=== PATIENT | female | born 1965 | race Caucasian/White ===

== ENCOUNTER → 2016-11-24 | Outpatient (CLI) | payer OTHER ==
[~2016-11-24] MED LIST: ALBU17IN INH; ALBUTEROL INH; CENTTAB47 PO; CITRACAL; IRON SULFATE PO; LISI10TA4 PO; LISIPOW PO; METFORMIN PO; NEXIUM PO; OMEP40CA2 PO; ONDA1TAB15 PO; TOPA50TA7 PO; VITA500T53 PO; VYTORIN PO
[2016-11-24 10:49] LABS: BASO % 0.5 % (0.0-1.0); EOS # 0.1 K/mm3 (0.0-0.50); EOS % 1.2 % (0.0-3.0); LARGE UNSTAINED CELL # 0.1 K/mm3 (0.0-0.4); LARGE UNSTAINED CELL % 1.1 % (0.0-4.0); LYMPH # 1.3 K/mm3 (1.5-4.5); LYMPH % 20.7 % (24.0-44.0); MEAN CORPUSCULAR HEMOGLOBIN 30.2 pg (27.0-33.0); MEAN CORPUSCULAR HGB CONC 33.6 g/dl (32.0-36.5); MEAN CORPUSCULAR VOLUME 89.9 fl (80.0-96.0); MONO # 0.3 K/mm3 (0.0-0.8); NEUTROPHILS # 4.2 K/mm3 (1.8-7.7); NEUTROPHILS % 71.5 % (36.0-66.0); PLATELET COUNT, AUTOMATED 298 k/mm3 (150-450); RED CELL DISTRIBUTION WIDTH 13.2 % (11.5-14.5); WHITE BLOOD COUNT 5.8 K/mm3 (4.0-10.0)
[2016-11-24 11:18] LABS: ALBUMIN 3.8 GM/DL (3.2-5.2); ALBUMIN/GLOBULIN RATIO 1.36 (1.00-1.93); ALKALINE PHOSPHATASE 80 U/L (45-117); ALT/SGPT 27 U/L (12-78); ANION GAP 6 MEQ/L (8-16); AST/SGOT 12 U/L (15-37); BILIRUBIN,TOTAL 0.5 MG/DL (0.2-1.0); BLOOD UREA NITROGEN 17 MG/DL (7-18); CALCIUM LEVEL 8.7 MG/DL (8.5-10.1); CARBON DIOXIDE LEVEL 26 MEQ/L (21-32); CHLORIDE LEVEL 111 MEQ/L (98-107); CREATININE FOR GFR 0.65 MG/DL (0.55-1.02); FREE T4 1.03 NG/DL (0.76-1.46); GLOMERULAR FILTRATION RATE > 60.0 (>51); GLUCOSE, FASTING 89 MG/DL (70-105); SODIUM LEVEL 143 MEQ/L (136-145); TOTAL PROTEIN 6.6 GM/DL (6.4-8.2)
== END ==
LOC: M LAB 09:52
PROVIDERS: ATTEND Physician Assistant Medical
DX: R19.7 Diarrhea, unspecified (principal)

== ENCOUNTER → 2016-11-25 | Outpatient (REF) | payer OTHER | LOC: M LAB REF 14:13 | PROVIDERS: ATTEND Physician Assistant Medical | DX: R19.7 Diarrhea, unspecified (principal) ==

== ENCOUNTER → 2016-11-29 | Outpatient (CLI) | payer OTHER ==
--- NOTE | 2016-11-30 07:01 | REP ---
KUB: Single view. History: Sitz marker, issues with diarrhea. The patient relates that sitz markers were administered in this department on November 24, 2016 at 10:30 a.m. Findings: KUB study shows no evidence of retention of any of the ingested sitz markers. There are clips in right upper quadrant and sutures in the left upper quadrant. There are phleboliths in the pelvis bilaterally. The bowel gas pattern is normal. Impression: Negative KUB. Postoperative changes in the upper abdomen. The sitz markers all appear to have passed through the gastrointestinal tract. Signed by Warren Santacruz MD 11/30/2016 08:42 A
== END ==
LOC: M RAD 08:00
PROVIDERS: ATTEND Physician Assistant Medical
DX: R19.7 Diarrhea, unspecified (principal)

== ENCOUNTER → 2017-01-12 | Outpatient (CLI) | payer OTHER ==
[~2017-01-12] MED LIST changes: +E-Z-PAQUE 96% w/w SUSP 176GM BTL As Ordered ONE
--- NOTE | 2017-01-12 17:04 | REP ---
SMALL BOWEL FOLLOW-THROUGH: The procedure was performed under the direct supervision of Dr. Albert. The images were reviewed with Dr. Albert. The aircraft maintenance instructor film shows no organomegaly or pathological masses. The intestinal gas pattern is nonspecific. There are bowel sutures noted in the epigastric region consistent with the patient's history of prior gastric bypass. There are surgical clips noted in the right upper quadrant. Liquid barium and administered and the barium column was followed through the small bowel to the level of the terminal ileum. Small bowel transit time was rapid as contrast is seen in ascending colon on the 0 minute film. During fluoroscopy gentle palpation shows all loops are freely movable and pliable. There are no fixed or angulated loops. The small bowel mucosal pattern is normal in course and caliber. There is no transition to suggest a partial small bowel obstruction. Spot filming of terminal ileum shows it to be unremarkable. IMPRESSION: Small bowel transit time is rapid as contrast is seen in the ascending colon on the 0 minute film.. Otherwise unremarkable small bowel follow through examination. 3 minutes and 26 seconds of fluoroscopy time was utilized for this procedure. Reviewed by AVRIL Washburn 01/13/2017 05:38 PEdited and Signed by Ashutosh Albert MD 01/13/2017 07:41 P
== END ==
LOC: M RAD 09:11
PROVIDERS: ATTEND Internal Medicine Gastroenterology
DX: R19.7 Diarrhea, unspecified (principal)

== ENCOUNTER → 2017-01-15 | Outpatient (CLI) | payer OTHER ==
[~2017-01-15] MED LIST changes: -E-Z-PAQUE 96% w/w SUSP 176GM BTL As Ordered ONE; +GASTROGRAFIN SOLUTION 30ML (Q9963) As Ordered ONE; +ISOVUE-370 76% 100ML VIAL (Q9967) As Ordered ONE
--- NOTE | 2017-01-16 06:13 | REP ---
Clinical: Irritable bowel syndrome. Diarrhea. Technique: Axial contrast enhanced images from the lung bases to the pubic symphysis using oral and 100 ml Isovue 370 intravenous contrast material with precontrast images of the abdomen as well as coronal and sagittal re-formations. Findings: Lung bases are clear. Visualized heart and pericardium normal. Liver, spleen, pancreas, bilateral adrenal glands and kidneys are essentially normal; 7 mm nonobstructing right renal calculus noted (image 27). There is evidence for prior gastric bypass, cholecystectomy, and hysterectomy. There is no evidence for bowel obstruction. A mild colitis cannot be excluded and should be correlated with physical examination. Pelvis demonstrates normal bladder. 3.5 cm left and 2 cm right hypodensities likely represents ovarian cysts. No ascites. No adenopathy. No free air. Vasculature is normal. Surrounding musculoskeletal structures without focal osseous abnormality. Impression: 1. 7 mm nonobstructing right renal calculus. 2. Possible mild pancolitis. 3. 3.5 cm left and 2 cm right adnexal hypodensities likely representing ovarian cysts may warrant pelvic ultrasound follow-up. Signed by Jorge Coley MD 01/16/2017 06:05 A
== END ==
LOC: M RAD 13:26
PROVIDERS: ATTEND Internal Medicine Gastroenterology
DX: R19.7 Diarrhea, unspecified (principal)

== ENCOUNTER → 2017-04-23 | Outpatient (CLI) | payer OTHER ==
[~2017-04-23] MED LIST changes: -GASTROGRAFIN SOLUTION 30ML (Q9963) As Ordered ONE; -ISOVUE-370 76% 100ML VIAL (Q9967) As Ordered ONE; -ONDA1TAB15 PO; +ONDA4TAB5 PO; -TOPA50TA7 PO; +TOPA50TA8 PO
[2017-04-23 16:32] LABS: AMYLASE 44 U/L (25-115)
== END ==
LOC: M LAB 15:23
PROVIDERS: ATTEND Internal Medicine Gastroenterology
DX: R10.13 Epigastric pain (principal); R19.7 Diarrhea, unspecified

== ENCOUNTER → 2017-04-23 | Outpatient (CLI) | payer OTHER ==
[2017-04-23 17:28] LABS: ALBUMIN 3.9 GM/DL (3.2-5.2); ALBUMIN/GLOBULIN RATIO 1.34 (1.00-1.93); ALKALINE PHOSPHATASE 81 U/L (45-117); ALT/SGPT 32 U/L (12-78); AMYLASE 44 U/L (25-115); ANION GAP 11 MEQ/L (8-16); AST/SGOT 16 U/L (15-37); BILIRUBIN,TOTAL 0.6 MG/DL (0.2-1.0); BLOOD UREA NITROGEN 14 MG/DL (7-18); CARBON DIOXIDE LEVEL 22 MEQ/L (21-32); CHLORIDE LEVEL 111 MEQ/L (98-107); CREATININE FOR GFR 0.59 MG/DL (0.55-1.02); GLOMERULAR FILTRATION RATE > 60.0 (>51); GLUCOSE, FASTING 78 MG/DL (70-105); SODIUM LEVEL 144 MEQ/L (136-145); TOTAL PROTEIN 6.8 GM/DL (6.4-8.2)
[2017-04-23 17:40] LABS: BASO % 0.4 % (0.0-1.0); EOS # 0.1 K/mm3 (0.0-0.50); EOS % 1.3 % (0.0-3.0); LARGE UNSTAINED CELL # 0.1 K/mm3 (0.0-0.4); LARGE UNSTAINED CELL % 1.3 % (0.0-4.0); LYMPH # 1.4 K/mm3 (1.5-4.5); LYMPH % 24.7 % (24.0-44.0); MEAN CORPUSCULAR HEMOGLOBIN 29.9 pg (27.0-33.0); MEAN CORPUSCULAR HGB CONC 33.9 g/dl (32.0-36.5); MEAN CORPUSCULAR VOLUME 88.4 fl (80.0-96.0); MONO # 0.2 K/mm3 (0.0-0.8); MONO % 3.8 % (0.0-5.0); NEUTROPHILS # 3.8 K/mm3 (1.8-7.7); NEUTROPHILS % 68.4 % (36.0-66.0); PLATELET COUNT, AUTOMATED 314 k/mm3 (150-450); RED CELL DISTRIBUTION WIDTH 13.2 % (11.5-14.5); WHITE BLOOD COUNT 5.5 K/mm3 (4.0-10.0)
== END ==
LOC: M WUC 14:04
PROVIDERS: ATTEND Physician Assistant
DX: R10.816 Epigastric abdominal tenderness (principal)

== ENCOUNTER → 2017-04-24 | Outpatient (CLI) | payer OTHER ==
[~2017-04-24] MED LIST changes: +GASTROGRAFIN SOLUTION 30ML (Q9963) As Ordered ONE; +ISOVUE-370 76% 100ML VIAL (Q9967) As Ordered ONE
--- NOTE | 2017-04-24 13:40 | REP ---
CT ABDOMEN WITH ORAL AND IV CONTRAST: CT abdomen performed following the administration of oral contrast as well as the intravenous administration of 100 mL of Isovue 370. Sagittal and coronal reconstruction images are performed. Comparison made with prior study of 04/04/2017. In the visualized lung bases, there is an old 3 mm nodular opacity in the right lower lobe which is benign. Patient has had a prior cholecystectomy. Liver appears grossly unremarkable. There is not significant biliary dilatation. Spleen, adrenals and pancreas are unremarkable in appearance. Left kidney appears unremarkable. Right kidney demonstrates a 5 mm calculus in the upper pole. There is no hydronephrosis bilaterally. No adenopathy or free air or free fluid is seen in the abdomen. IMPRESSION: No acute abnormalities. There is again a 5 mm right intrarenal calculus. No hydronephrosis. No free air or free fluid. Signed by Ashutosh Albert MD 04/24/2017 05:10 P
== END ==
LOC: M RAD 11:08
PROVIDERS: ATTEND Physician Assistant
DX: R10.9 Unspecified abdominal pain (principal)

== ENCOUNTER → 2017-04-24 | Outpatient (REF) | payer OTHER ==
[~2017-04-24] MED LIST changes: -GASTROGRAFIN SOLUTION 30ML (Q9963) As Ordered ONE; -ISOVUE-370 76% 100ML VIAL (Q9967) As Ordered ONE
== END ==
LOC: M LAB REF 11:53
PROVIDERS: ATTEND Internal Medicine Gastroenterology
DX: R10.13 Epigastric pain (principal); R19.7 Diarrhea, unspecified

== ENCOUNTER → 2017-05-05 | Outpatient (REF) | payer OTHER ==
[2017-05-05 18:14] LABS: VITAMIN B12 LEVEL 761 PG/ML (247-911)
[2017-05-05 18:15] LABS: FOLATE > 24.0 NG/ML (>5.4)
== END ==
LOC: M LABNEURO 16:12
PROVIDERS: ATTEND Psychiatry & Neurology Neurology
DX: E55.9 Vitamin D deficiency, unspecified (principal)

== ENCOUNTER → 2017-05-15 | Outpatient (CLI) | payer OTHER ==
--- NOTE | 2017-05-15 19:22 | REP ---
MRI CERVICAL SPINE WITHOUT CONTRAST: HISTORY: Neck pain. A disc bulge is present at the C5-6 level. There is minimal effacement of the thecal sac without spinal cord compression. The C5 neural foramina are patent. There is no other disc bulge or herniation. The remaining neural foramina are patent. The spinal cord is normal in signal intensity. Normal signal intensity is present in the cervical vertebral bodies. IMPRESSION: Disc bulge at the C5-6 level without spinal cord compression. Signed by Jung Carias MD 05/19/2017 08:15 A
== END ==
LOC: M PLARAD 13:24
PROVIDERS: ATTEND Psychiatry & Neurology Neurology
DX: M54.2 Cervicalgia (principal)

== ENCOUNTER 2017-10-22 11:28 | Day surgery (SDC) | payer OTHER ==
[2017-10-22] MEDS ORDERED: PROPOFOL 200 MG/20 ML VIAL As Ordered ×2 (13:55)
[2017-10-22] MEDS ORDERED: LIDOCAINE 2% INJ 100 MG/5 ML SDV (FOR ANES.) As Ordered (13:55)
== END 2017-10-22 14:52 | disposition home or self-care (01) ==
LOC: M OPP 11:28
DX: R19.7 Diarrhea, unspecified (principal); R10.9 Unspecified abdominal pain; Z86.010 Personal history of colon polyps; K64.8 Other hemorrhoids; I10 Essential (primary) hypertension; R01.1 Cardiac murmur, unspecified; K21.9 Gastro-esophageal reflux disease without esophagitis; R12 Heartburn; K86.81 Exocrine pancreatic insufficiency; D64.9 Anemia, unspecified; G43.909 Migraine, unspecified, not intractable, without status migrainosus; J45.909 Unspecified asthma, uncomplicated; Z98.84 Bariatric surgery status; Z88.0 Allergy status to penicillin; Z79.899 Other long term (current) drug therapy
CPT/HCPCS: 45380

== ENCOUNTER 2019-04-19 06:53 | Day surgery (SDC) | payer OTHER ==
[~2019-04-19] VITALS: Ht 160 cm; Wt 79.0 kg
[~2019-04-19 06:53] MED LIST changes: +CLINDAMYCIN 600 MG in APPROPRIATE DILUENT 1 EA IV ONE; +CREO3600 PO; +FERR325T18 PO; +IMOD2CAP PO; +LIDOCAINE 1% MDV 20ML VIAL SQ PRN; +LR 1,000 ML IV ONE; +VITA500T17 PO; -VITA500T53 PO; +ZOFR4TAB16 PO; +[UNRECOGNIZED DRUG - CODE] PO
[2019-04-19] MEDS ORDERED: ONDANSETRON 4MG/2ML VIAL (J2405) As Ordered ONE ×2 (07:55→07:56)
[2019-04-19] MEDS ORDERED: dexameTHASONE 4 MG/ML 1ML VIAL (J1100) As Ordered ONE ×2 (07:55→07:56)
[2019-04-19] MEDS ORDERED: LIDOCAINE 2% INJ 100 MG/5 ML SDV (FOR ANES.) As Ordered ONE ×2 (07:55→07:56)
[2019-04-19] MEDS ORDERED: PROPOFOL 200 MG/20 ML VIAL As Ordered ONE ×2 (07:55→07:56)
[2019-04-19] MEDS ORDERED: ROCURONIUM BROMIDE 50 MG/5 ML VIAL As Ordered ONE ×3 (07:55→10:10)
[2019-04-19] MEDS ORDERED: MIDAZOLAM INJ 2 MG/2 ML VIAL (J2250) As Ordered ONE ×2 (07:57→08:39)
[2019-04-19] MEDS ORDERED: fentaNYL 100 MCG/2 ML INJECTION (J3010) As Ordered ONE ×2 (07:57→07:59)
[2019-04-19] MEDS ORDERED: ULTR5TAB PO (07:59)
[2019-04-19] MEDS ORDERED: HYDROmorphone HCL 2 MG/ML 1ML VIAL (J1170) As Ordered ONE (07:59)
[2019-04-19] MEDS ORDERED: LISI-538 PO (07:59)
[2019-04-19] MEDS ORDERED: KETAMINE HCL 200 MG/20 ML VIAL As Ordered ONE (07:59)
[2019-04-19] MEDS ORDERED: BACITRACIN PWD 50,000 UNITS VIAL As Ordered ONE (09:16)
[2019-04-19] MEDS ORDERED: BUPIVACAINE LIPOSOME/PF 1.3% 20ML VIAL (13.3MG/ML)(EXPAREL)(C9290 PER1MG) As Ordered ONE (09:18)
[2019-04-19] MEDS ORDERED: SUGAMMADEX SODIUM 500 MG/5 ML VIAL (BRIDION) As Ordered ONE (09:43)
[2019-04-19] MEDS ORDERED: KETOROLAC 60 MG/2 ML VIAL (J1885) As Ordered ONE (09:44)
[2019-04-19] MEDS ORDERED: ACETAMINOPHEN 1000MG 100ML IV BTL (OFIRMEV) (J0131 PER 10MG) As Ordered ONE (09:44)
[2019-04-19] MEDS ORDERED: ePHEDrine SULFATE 25 MG/5 ML(5MG/ML) SYRINGE As Ordered ONE (10:02)
--- NOTE | 2019-04-19 12:50 | POST-OPPD ---
Postoperative Procedure Note Date Of Procedure: Apr 19, 2019 PREOPERATIVE DIAGNOSIS: Symptomatic macromastia POSTOPERATIVE DIAGNOSIS: same FINDINGS: large pendulous breasts PROCEDURE: Bilateral breast reduction SURGEON: Dr Vogel BIAS BINDING CUTTER: Dr Pyle ANESTHESIA: general SPECIMENS: right breast 513g, left breast 484g ESTIMATED BLOOD LOSS: 100cc REPLACED: none DRAINS: 10 mm DION drains x 2 COMPLICATIONS: none POSTOPERATIVE CONDITION: stable Dict: [id number] SUNNI VOGEL DO Apr 19, 2019 12:49
[2019-04-19] MEDS ORDERED: PERCOCET 5MG/325MG TAB PO PRN (13:30)
[2019-04-19] MEDS ORDERED: ONDANSETRON 4MG/2ML VIAL (J2405) IV PRN (13:30)
[2019-04-19] MEDS ORDERED: MORPHINE 4 MG/ML 1ML VIAL/SYRINGE (J2270) IV PRN (13:30)
[2019-04-19] MEDS: LR 1,000 ML IV SCH (13:30)
[2019-04-19 14:00] VITALS: BP 120/76
[2019-04-19 14:27] VITALS: BP 121/77
[2019-04-19 15:34] VITALS: BP 120/77
[2019-04-19] MEDS ORDERED: CLINDAMYCIN 600 MG in APPROPRIATE DILUENT 1 EA IV ONE (17:00)
[2019-04-19 17:24] VITALS: BP 121/76
[2019-04-19] MEDS: CREON-24 CAPSULE PO SCH (17:38)
[2019-04-19] MEDS: TOPIRAMATE (TopAMAX) 100 MG TAB PO SCH (20:22)
[2019-04-19] MEDS ORDERED: ALOSETRON PO SCH (21:00)
[2019-04-19 22:00] VITALS: BP 122/77
[2019-04-20 02:00] VITALS: BP 121/77
[2019-04-20] MEDS: LR 1,000 ML IV SCH (03:38)
[2019-04-20 06:00] VITALS: BP 126/82
[2019-04-20] MEDS: TOPIRAMATE (TopAMAX) 100 MG TAB PO SCH (07:22)
[2019-04-20] MEDS: CREON-24 CAPSULE PO SCH (07:22)
[2019-04-20 07:23] VITALS: BP 126/82
--- NOTE | 2019-04-20 08:44 | IPNPDOC ---
Subjective General Date/Time Seen The patient was seen on 04/20/19 at 08:34. Subject Chief Complaint/History The patient is a 54-year-old female admitted with a reason for visit of Bilateral Breast Hypertrophy. S/p BBR POD 1. Doing well. Pain controlled. Ambulating, tolerating diet. Current Medications Current Medications Current Medications Medications (Trade) Dose Ordered Sig/Stalin Route PRN Reason Start Time Stop Time Status Last Admin Dose Admin Lactated Ringer's 1,000 ml @ 75 mls/hr [id number] IV 04/19/19 13:30 04/20/19 03:38 Lidocaine HCl (LIDOCAINE 1% MDV 20ml) 0.1 ml ONCE PRN SQ DISCOMFORT BEFORE IV START 04/19/19 06:00 04/19/19 13:20 DC Lisinopril (Prinivil) 20 mg DAILY PO 04/20/19 09:00 04/20/19 07:23 Miscellaneous (Unresolved Clarification Entry) SEE LABEL COMMENTS DAILY XX 04/19/19 09:00 04/19/19 14:50 DC Miscellaneous (Unresolved Patient Own Med Order) SEE LABEL COMMENTS DAILY XX 04/19/19 09:00 Morphine Sulfate (Morphine Sulfate Inj) 4 mg Q4H PRN IV SEVERE PAIN (PS 8-10) 04/19/19 13:30 Ondansetron HCl (ZOFRAN INJection) 4 mg Q6H PRN IV NAUSEA 04/19/19 13:30 04/19/19 13:40 Oxycodone/ Acetaminophen (Percocet 5mg/ 325mg Tablet) 1 tab Q4H PRN PO MODERATE PAIN (PS 5-7) 04/19/19 13:30 Pancrelipase (Creon-24) 3 ea WM PO 04/19/19 18:00 04/20/19 07:22 Patient Own Medication (Patient'S Own Med) 1 TABLET (0.5MG) BID PO 04/19/19 21:00 UNV Topiramate (TopAMAX) 100 mg BID PO 04/19/19 21:00 04/20/19 07:22 Allergies Coded Allergies: Penicillins (Verified Allergy, Severe, RASH, SOB, 04/19/19) Objective Physical Examination Examination GENERAL APPEARANCE:Patient seen, laying in bed, awake, alert, and oriented. Comfortable, in no acute distress. SKIN: Warm and moist. BREAST: flaps viable, NAC viable. Incisions intact. DION drains serosanguinous minimal. HEENT: Normocephalic, atraumatic. [place] palpebral conjunctiva, anicteric sclerae. Lips and mucosa appear moist. NECK: Supple, no thyromegaly. No obvious jugular venous distention. LUNGS: Clear to auscultation bilaterally. No wheezing appreciated. HEART: No chest wall abnormalities. Regular rate and rhythm with no murmurs appreciated. Vital Signs Vital Signs Date Time Temp Pulse Resp B/P (MAP) Pulse Ox O2 Delivery O2 Flow Rate FiO2 04/20/19 07:23 126/82 04/20/19 06:00 99.3 73 12 99 I&Os I&O- Last 24 Hours up to 6 AM 04/20/19 06:00 Intake Total 1950 ml Output Total 1140 ml Balance 810 ml Laboratory Data Labs 24H Laboratory Tests 2 04/19/19 21:14: Bedside Glucose (Misc Panel) 142H Impression S/p BBR POD1 Doing well. Continue with DION drain monitoring Support bra. Stable for discharge F/up plastic surgery office Instructions given to patient. Plan / VTE VTE Prophylaxis Ordered?: Yes SUNNI VOGEL DO Apr 20, 2019 08:44
[2019-04-20] MEDS ORDERED: LISINOPRIL 20 MG TAB PO SCH (09:00)
[2019-04-20] MEDS ORDERED: PERC5TAB12 PO (09:11)
--- NOTE | 2019-04-21 03:24 | RO ---
DATE OF PROCEDURE: 04/19/2019 PREOPERATIVE DIAGNOSIS: Symptomatic macromastia. POSTOPERATIVE DIAGNOSIS: Symptomatic macromastia. PROCEDURE: Bilateral breast reduction. ATTENDING SURGEON: Annabelle Knutson DO COMMERCIAL LEASE ADMINISTRATOR: Dr. Pyle ANESTHESIA: General. SPECIMENS SENT: 1. Right breast 513 grams. 2. Left breast 484 grams. BLOOD LOSS: 100 mL. No replacement needed. Two 10 mm Ulises-Tejada drains left in place. DESCRIPTION OF PROCEDURE: This is a 54-year-old female who has lost significant weight after gastric procedure. She, however, has very large breasts that did not reduce in size significantly and it is causing her upper back pain. She is a great candidate for breast reduction. All the risks and benefits and alternatives were discussed with the patient including no surgery, and she is ready to proceed. Her preoperative measurements are 31 cm from sternal notch bilaterally, and the inframammary fold (IMF) is at 20 cm. We marked her in upright position in preoperative holding area according to superomedial pedicle pattern, and then she was brought into the operating room, placed in supine position. Preoperative antibiotics were given, sequentials placed on the lower calves. General anesthesia was induced. She was prepped and draped in the usual sterile fashion. We turned our attention to the right side. The right side feels a little larger. We measured out her nipple-areolar complex at 45 mm in diameter, and then we started our dissection using #10 blade and the electrocautery and the PEAK cautery as well. I removed inferolateral portion of the breast, and then hemostasis was obtained using electrocautery. The pedicle was de-epithelialized using Blank scissors, and then the whole wound was irrigated with Bacitracin irrigation solution. Then Exparel was given into the pectoralis major in the lateral chest with total of 6 mL on the right side, and then pedicle was better positioned to its new position at 22 cm from sternal notch. The mound was recreated, and then started closing the pillars with interrupted #3-0 Monocryl sutures. The mound was confirmed using #0 Vicryl sutures as well. The vertical limb was 7.5 cm, and then excess tissue was measured and resected, creating the horizontal scar, which was closed with #3-0 Monocryl sutures. 10 mm Ulises-Tejada drain was placed through the lateral portion of the horizontal incision and sutured in place. Nipple areolar complex was positioned with and secured with #3-0 Monocryl, #4-0 Monocryl, and #5-0 interrupted sutures. Then we turned our attention to the left side, and a mirror procedure was recreated. Nipple-areolar complex measured at 45 mm in diameter. Dissection was carried out using electrocautery and PEAK cautery. Inferolateral portion of the breast was removed and sent to pathology. The wound was irrigated, and then the pedicle was de-epithelialized using Blank scissors. Exparel on the left side was also injected in pectoralis muscles extending laterally to the serratus anterior, 6 mL total, and we started our closure. The pedicle was turned superiorly to its new location at 20 cm from sternal notch, and the mound was recreated. Pillars were closed with interrupted #3-0 Monocryl sutures, and the mound was reinforced with #0 Vicryl sutures as well. Excess tissue was measured and resected, creating a horizontal scar. The vertical limb was 7.5 cm in length. The horizontal scar was closed in layers with interrupted #3-0 Monocryl sutures. 10 mm Ulises-Tejada drain was placed through the same incision in the lateral portion of the horizontal incision. Nipple-areolar complex was sutured in place with interrupted #3-0 and #4-0 Monocryl sutures as well as a #5-0 interrupted dermal stitch. Prineo dressing was applied to vertical and horizontal incisions, and Xeroform was placed on the nipple-areolar complex. Padding and a surgical bra was placed as well. Patient was extubated in operating room without any difficulties, transferred to recovery room in stable condition. TIMMY
== END 2019-04-20 11:55 | disposition home or self-care (01) ==
LOC: M SDC 06:53 → M MS5PR 14:00 → M SDC 04-20 11:55
PROVIDERS: ATTEND Plastic Surgery Surgery of the Hand
DX: N62 Hypertrophy of breast (principal); I10 Essential (primary) hypertension; Z98.84 Bariatric surgery status; Z79.51 Long term (current) use of inhaled steroids; Z79.899 Other long term (current) drug therapy; G43.909 Migraine, unspecified, not intractable, without status migrainosus
CPT/HCPCS: 19318; 88305; 96374; C9290; J0131; J1100; J1170; J1885; J2250; J2405; J3010

== ENCOUNTER → 2019-07-01 | Outpatient (CLI) | payer OTHER ==
[~2019-07-01] MED LIST changes: -CLINDAMYCIN 600 MG in APPROPRIATE DILUENT 1 EA IV ONE; -LIDOCAINE 1% MDV 20ML VIAL SQ PRN; +LISI-538 PO; -LR 1,000 ML IV ONE; -OMEP40CA2 PO; +OMEP40CA97 PO; +PERC5TAB12 PO; +ULTR5TAB PO
--- NOTE | 2019-07-01 11:41 | REP ---
MRI cervical spine: 07/02/2019. Indication: Cervical radiculopathy. Comparison: 05/15/2017. Technique: Multiplanar short and long TR sequences of the cervical spine were obtained without IV Gadolinium. Findings: Vertebral body alignment is anatomic. No worrisome marrow signal is present. The visualized cord is normal. The bilateral vertebral flow voids are unremarkable. There is 1.2 cm right thyroid nodule. C2/C3, C3/C4 and C4/C5: Unremarkable. C5/C6: Minimal diffuse disc bulge is present without significant spinal canal or neural foraminal narrowing. C6/C7: Very minimal disc bulge is present without significant spinal canal or neural foraminal narrowing. C7/T1: Unremarkable. Impression: Minimal degenerative sequelae of the cervical spine without significant spinal canal or neural foraminal narrowing. Right thyroid nodule. Please correlate clinically and with sonography if indicated. Electronically Signed by Bismark Mandujano DO 07/01/2019 11:32 A
--- NOTE | 2019-07-01 12:20 | REP ---
MRI lumbar spine: 07/02/2019. Indication: Low back pain. Comparison: None. Technique: Multiplanar short and long TR sequences of the lumbar spine were performed without IV Gadolinium. Findings: Vertebral body alignment is anatomic. No worrisome marrow signal is present. The visualized cord is unremarkable. No significant paraspinal soft tissue abnormalities are present. Disc dessication is present throughout with the exception of L1/L2. Endplate degenerative sequelae and disc space narrowing are present at L5/S1. L1/L2: Unremarkable. L2/L3: Diffuse disc bulge is present with mild spinal canal and bilateral neural foraminal narrowing. L3/L4: There is a far left lateral disc extrusion with minimal cephalad migration superimposed on a diffuse disc bulge best appreciated on the sagittal T1 sequence image/page 11. Encroaches upon the exiting L3 nerve root. The spinal canal and right neural foramen are patent. L4/L5: Diffuse disc and spur complex and bilateral facet arthropathy are present with moderate narrowing of the lateral recesses and neural foramen bilaterally. L5/S1: Diffuse disc and spur complex is present more pronounced on the right. There is moderate to severe narrowing of the right lateral recess. There is moderate right greater than left neural foraminal narrowing. Bilateral facet arthropathy is present. Impression: Far left lateral L3/L4 disc herniation as described. Additional multilevel degenerative sequelae with the most pronounced recess narrowing on the right at L5/S1. Electronically Signed by Bismark Mandujano DO 07/01/2019 12:11 P
== END ==
LOC: M PLARAD 09:51
PROVIDERS: ATTEND Psychiatry & Neurology Neurology
DX: M50.223 Other cervical disc displacement at C6-C7 level (principal); M50.222 Other cervical disc displacement at C5-C6 level; M25.78 Osteophyte, vertebrae; M51.26 Other intervertebral disc displacement, lumbar region; M54.16 Radiculopathy, lumbar region; E04.1 Nontoxic single thyroid nodule

== ENCOUNTER → 2019-09-26 | Outpatient (CLI) | payer OTHER ==
[~2019-09-26] MED LIST changes: +ONDA-83 PO; -ONDA4TAB5 PO
--- NOTE | 2019-10-12 02:30 | ECWPNPC ---
PATIENT NAME: ARELY DAVIS : 1965 GENDER: FEMALE VISIT DATE: 09/26/2019 DISCHARGE DATE: 09/26/19 1242 VISIT LOCKED DATE TIME: PHYSICIAN: ALMAS DAN RESOURCE: ALMAS DAN REASON FOR APPOINTMENT 1. LOW BACK PAIN HISTORY OF PRESENT ILLNESS PAIN SCREENIN-YEAR-OLD FEMALE REFERRED BY DR. GOMEZ ,[facility] FOR CHRONIC LOW BACK PAIN. LONG HISTORY OF CHRONIC LOW BACK PAIN. DENIES PRECIPITATING EVENT. DESCRIBES PAIN INTERMITTENT AND OCCASIONALLY GOING DOWN THE LEFT POSTERIOR LEG. DENIES SLEEP DISRUPTION DUE TO PAIN. PAIN IS AGGRAVATED BY LIFTING OR GETTING UP FROM A SUPINE POSITION AND PROLONGED STANDING. RATING PAIN LEVEL 3-6/10 VAS. DENIES BOWEL OR BLADDER INCONTINENCE. NO RECENT FEVER, ILLNESS, OR WEIGHT LOSS. PATIENT HAS A COMPLAINT OF ACUTE OR CHRONIC PAIN :YES FALL RISK SCREENING: SCREENING :NO FALLS REPORTED IN THE LAST YEAR CURRENT MEDICATIONS TAKING TRAMADOL HCL 50 MG TABLET 1 TABLET NEEDED ORALLY ONCE A DAY TAKING TOPIRAMATE 100 MG TABLET 1 TABLET ORALLY BID TAKING CREON 81576 UNIT CAPSULE DELAYED RELEASE PARTICLES DIRECTED ORALLY TAKING ALOSETRON HCL 0.5 MG TABLET 1 TABLET ORALLY TWICE A DAY TAKING LISINOPRIL 20 MG TABLET 1 TABLET ORALLY ONCE A DAY NOT-TAKING PREDNISONE 10 MG TABLET 1 TABLET ORALLY ONCE A DAY NOT-TAKING TRIAMCINOLONE ACETONIDE 0.1 % CREAM 1 APPLICATION TO AFFECTED AREA EXTERNALLY DAILY IN AM TO AREAS ON BODY INVOLVED NOT-TAKING HYDROXYZINE HCL 25 MG TABLET 1 TABLET NEEDED ORALLY EVERY 8 HRS NOT-TAKING BETAMETHASONE DIPROPIONATE AUG 0.05 % GEL 1 APPLICATION TO AFFECTED AREA EXTERNALLY ONCE A DAY TO AREAS ON SCALP THAT ITCH NOT-TAKING HYDROCORTISONE 2.5 % CREAM 1 APPLICATION TO AFFECTED AREA RECTAL DAILY TO AREAS ON FACE WITH ITCHY RASH PAST MEDICAL HISTORY HYPERTENSION IBS CHRONIC BACK PAIN ALLERGIES PENICILLIN (FOR ALLERGIES USE ONLY) SURGICAL HISTORY BREAST REDUCTION 04/2019 GALL BLADDER 2011 GASTRIC BYPASS 07/2013 HYSTERECTOMY 2009 BREAST LUMPECTOMY 2017 FAMILY HISTORY FATHER: , DIAGNOSED WITH HYPERTENSION MOTHER: ALIVE, DIABETES NON-CONTRIBUTORY MATERNAL AUNT HAD PANCREATIC CANCER. DENIES ANY FAMILY HX OF MELANOMA. SOCIAL HISTORY GENERAL: TOBACCO USE ARE YOU A:NONSMOKER OTHERS AT HOME: LIVES WITH OTHERS. EDUCATION LEVEL OF EDUCATION:HIGH SCHOOL DIET: GASTRIC BYPASS. LANGUAGE LANGUAGES SPOKEN:GEORGIAN NEW PATIENT PAIN DIARY PATIENT DESCRIBES PAIN :SORE FROM 0-10, WHAT LEVEL IS YOUR PAIN TODAY?3 PRECIPITATING FACTORS PT STATES THAT HOUSEWORK, LIFTING, STREUOUS ACTIVITY ALLEVIATING FACTORS REST, ICE/HEAT SLIGHT HELP IMPACT ON FUNCTION REDUCED ABILITY TO PREFORM DAILY ACTIVITY DO YOU HAVE ANY RASHES OR OPEN SORES?NO ANY CHANGE IN BOWEL OR BLADDER CONTROL?NO ARE YOU ALLERGIC TO SHELLFISH OR IV DYE?NO ARE YOU DIABETIC?NO DO YOU HAVE A PACEMAKER OR DEFIBRILLATOR?NO ANY NEW PROBLEMS WITH MEDICINES OR NEW ALLERGIESNO ANY NEW PATTERNS OF PAIN OR NUMBNESS?NO ANY CHANGE IN YOUR MEDICAL CONDITION?NO HAVE YOU FALLEN IN THE LAST 6 MONTHS?NO DO YOU USE ANY TYPE OF TOBACCO (SMOKE, SMOKELESS, CHEW, ETC.)NO ARE YOU ABUSED, NEGLECTED, OR IN AN UNSAFE ENVIRONMENT?NO DO YOU HAVE THOUGHTS OF HURTING YOURSELF OR SOMEONE ELSE?NO DO YOU NEED ANY PRESCRIPTIONS?NO DO YOU HAVE ANY OTHER QUESTIONS OR CONCERNS?NO RECREATIONAL DRUG USE DRUG USE?NO EXERCISE: REGULAR EXERCISE. LEARNING BARRIERS / SPECIAL NEEDS CHANGE FROM LAST VISIT? 06/06/19 BARRIERS TO LEARNING?NO HEARING IMPAIRED?NO VISION IMPAIRED?NO COGNITIVELY IMPAIRED?NO READINESS TO LEARN?YES LEARNING PREFERENCES?NO LEARNING CAPABILITIES PRESENT?YES EMOTIONAL BARRIERS?NO SPECIAL DEVICES?NO GLAZIER METAL FURNITURE NEEDED?NO PAIN CLINIC PFS, CLERGY, PUBLIC HEALTH REFERRALS HAS THE PATIENT BEEN EDUCATED REGARDING HIS/HER PLAN OF CARE?YES HAS THE PATIENT BEEN EDUCATED REGARDING PAIN, THE RISK FOR PAIN, THE IMPORTANCE OF EFFECTIVE PAIN MANAGEMENT, AND THE PAIN ASSESSMENT PROCESS?YES ORIENTED TO PAIN MANAGEMENT. PT ACKNOWLEDGED UNDERSTANDING. DS LATEX QUESTIONNAIRE LATEX ALLERGY : HAVE YOU EVER DEVELOPED ANY TYPE OF REACTION AFTER HANDLING LATEX PRODUCTS SUCH RUBBER GLOVES, CONDOMS, DIAPHRAGMS, BALLOONS, SOCKS, OR UNDERWEAR?NO LATEX ALLERGY : HAVE YOU EVER DEVELOPED ANY TYPE OF REACTION DURING OR AFTER DENTAL APPOINTMENT, VAGINAL/RECTAL EXAMINATION, SURGICAL PROCEDURE, OR ANY OTHER EXPOSURE?NO LATEX RISK : HAVE YOU EVER HAD ANY DIFFICULTY BREATHING OR HIVES AFTER EATING OR HANDLING ANY FRUITS, OR VEGETABLES; SUCH KIWI, BANANAS, STONE FRUITS, OR CHESTNUTSNO LATEX RISK : DO YOU HAVE A PREVIOUS PERSONAL HISTORY OF MORE THAN NINE SURGERIES, SPINA BIFIDA, OR REPEATED CATHERIZATIONS? NO LATEX RISK : ARE YOU FREQUENTLY EXPOSED TO LATEX PRODUCTS IN YOUR OCCUPATION?NO DATE ASKED : 09/26/2019 CAFFEINE CAFFEINE USE?NO ADVANCE DIRECTIVE ADVANCE DIRECTIVE DISCUSSED WITH PATIENT:YES PT STATES THAT SHE DOES NOT HAVE HCP, DECLINED INFORMATION AT THIS TIME. DS EPISCOPAL EPISCOPAL MANDAEISM MARITAL STATUS: . OCCUPATION: HOUSEWIFE. HOSPITALIZATION/MAJOR DIAGNOSTIC PROCEDURE HYSTERECTOMY GASTRIC BYPASS GALL BLADDER BREAST REDUCTION REVIEW OF SYSTEMS REVIEWED BY: PROVIDER: ALMAS PETERS . CONSTITUTIONAL: ANY CHANGE IN YOUR MEDICAL CONDITION? NO . CHILLS NO . FEVER NO . INFECTION: DO YOU HAVE NEW INFECTIONS? NO . DO YOU HAVE HISTORY OF MRSA? NO . MUSCULOSKELETAL: ANY NEW PATTERNS OF PAIN OR NUMBNESS? NO . SYTEMIC LUPUS NO . GASTROENTEROLOGY: ANY NEW CHANGE IN BOWEL CONTROL? NO . BARRETTS ESOPHAGUS NO . CIRRHOSIS NO . HEPATITIS NO . LIVER FAILURE NO . ACID REFLUX NO . UNEXPLAINED WEIGHT LOSS NO . GENITOURINARY: ANY NEW CHANGE IN BLADDER CONTROL? NO . IS THERE A CHANCE YOU COULD BE ? NO . HEMATOLOGY/LYMPH: DO YOU TAKE ANY BLOOD THINNERS? (FOR EXAMPLE- COUMADIN, PLAVIX, AGGRENOX, PLATEL, PRADAXA, OR XARELTO) NO . WHEN WAS YOUR LAST DOSE? DATE: TIME: . LOW PLATELET COUNT NO . SICKLE CELL DISEASE NO . VON WILLIEBRANDS NO . FACTOR V LEIDEN NO . THALLASEMIA NO . ANEMIA NO . EASY BRUISING NO . NEUROLOGY: HAVE YOU FALLEN IN THE PAST 12 MONTHS? NO . ANY NEW EXTREMITY NUMBNESS OR WEAKNESS? NO . HEAD INJURY NO . DEMENTIA NO . CEREBRAL PALSY NO . MULTIPLE SCLEROSIS NO . DIZZINESS NO . HEADACHE NO . STROKES NO . VERTIGO NO . CARDIOLOGY: DO YOU HAVE A PACEMAKER OR DEFIBRILLATOR? NO . ANGINA NO . HEART ATTACK NO . HEART SURGERY NO . CONGESTIVE HEART FAILURE/FLUID OVERLOAD NO . CHEST PAIN NO . HIGH BLOOD PRESSURE NO . IRREGULAR HEART BEAT NO . RESPIRATORY: HAVE YOU BEEN SICK IN THE PAST WEEK? NO . FEVER NO . FLU LIKE SYMPTOMS? NO . CPAP NO . BYPAP NO . ASTHMA NO . EMPHYSEMA NO . CHRONIC LUNG DISEASES NO . SHORTNESS OF BREATH ON EXERTION NO . COUGH NO . SNORING NO . INTEGUMENTARY: DO YOU HAVE ANY RASHES OR OPEN SORES? NO . ALLERGIC/IMMUNO: ARE YOU ALLERGIC TO IV DYE? NO . ANY NEW ALLERGIES? NO . PSYCHIATRIC: DO YOU HAVE THOUGHTS OF HURTING YOURSELF OR SOMEONE ELSE? NO . ARE YOU ABUSED, NEGLECTED, OR IN AN UNSAFE ENVIRONMENT? NO . ENDOCRINOLOGY: ARE YOU DIABETIC? NO . THYROID DISORDER NO . OTHER: DO YOU NEED ANY PRESCRIPTIONS? NO . IF YES, PLEASE LIST: ____ . ANY NEW PROBLEMS WITH YOUR MEDICATIONS? NO . WHEN DID YOU LAST EAT? ____ . WHEN DID YOU LAST DRINK? ____ . WHAT DID YOU LAST DRINK? ____ . NAME OF PERSON DRIVING YOU HOME? ____ . DO YOU HAVE ANY OTHER QUESTIONS OR CONCERNS NO . VITAL SIGNS WT 168.8 LBS, HT 63 IN, BMI 29.90 INDEX, BP 120/71 MM HG, HR 78 /MIN, RR 18 /MIN, TEMP 98.6 F, OXYGEN SAT % 100, SAFE IN ENV? (Y/N) Y, REVIEWED BY: OMAIRA. BERRY AVILA LPN II @ 1122. EXAMINATION GENERAL EXAMINATION: GENERAL ALERT,NO DISTRESS . PSYCH AFFECT NORMAL . LUNGS: LUNG SOUNDS ARE CLEAR . HEART: HEART RATE REGULAR . MUSCULOSKELETAL: MST 5/5 BILAT. LOWER EXTREMITIES . FOR BILAT. SIJ TENDERNESS BILAT. SIJ . DIAGNOSTIC TESTS REVIEWEDMRI OF THE LUMBAR SPINE 07/02/2019. ASSESSMENTS SACROILIITIS - M46.1 (PRIMARY) TREATMENT SACROILIITIS NOTES: BILAT.SIJ. PROCEDURE CODES FA211 ESTABILISHED PATIENT [facility] FACILITY CHARGE DISPOSITION & COMMUNICATION FOLLOW UP POST SIJ (REASON: BILAT. SIJ) ELECTRONICALLY SIGNED BY FRAN COLE ON 10/11/2019 AT 04:01 PM EST DISCLAIMER : THIS IS A VISIT SUMMARY EXTRACTED FROM THE [employer] CHART. IT IS NOT A COPY OF THE [employer] PROGRESS NOTE. TIMMY
== END ==
LOC: M PAIN 11:00
PROVIDERS: ATTEND Nurse Practitioner Family
DX: M46.1 Sacroiliitis, not elsewhere classified (principal); G89.29 Other chronic pain; I10 Essential (primary) hypertension; Z98.84 Bariatric surgery status; Z88.0 Allergy status to penicillin; Z79.899 Other long term (current) drug therapy

== ENCOUNTER → 2019-10-27 | Outpatient (CLI) | payer OTHER ==
[~2019-10-27] MED LIST changes: +BUPIVACAINE HCL 0.25% 30 ML VIAL As Ordered ONE; +ISOVUE-M 300 61% 15ML VIAL (Q9967) As Ordered ONE; +LIDOCAINE 1% SDV INJ 30 ML VIAL As Ordered ONE; +TRIAMCINOLONE ACETONIDE SUSP 40 MG/ML VIAL (J3301) As Ordered ONE; +diazePAM 2 MG TAB As Ordered ONE
--- NOTE | 2019-10-27 12:06 | REP ---
Joint series: Two views. History: Procedural imaging. Injection procedure for pain. 22 seconds of fluoroscopy time is reported. Findings: A sequence of two last image hold fluoroscopically obtained spot radiographs of the SI joints document needle position and contrast injection associated with injection procedure. Electronically Signed by Warren Santacruz MD 10/27/2019 11:57 A
--- NOTE | 2019-11-15 05:51 | ECWPNPC ---
PATIENT NAME: ARELY DAVIS : 1965 GENDER: FEMALE VISIT DATE: 10/27/2019 DISCHARGE DATE: 10/27/19 1117 VISIT LOCKED DATE TIME: PHYSICIAN: ERVIN GUADARRAMA MD RESOURCE: ERVIN GUADARRAMA MD REASON FOR APPOINTMENT 1. THAO. SIJ HISTORY OF PRESENT ILLNESS HISTORY OF PRESENT ILLNESS: PAIN THE PATIENT DESCRIBES THE PAIN... FALL RISK SCREENING: SCREENING :NO FALLS REPORTED IN THE LAST YEAR CURRENT MEDICATIONS TAKING PREDNISONE 10 MG TABLET 1 TABLET ORALLY ONCE A DAY TAKING TRIAMCINOLONE ACETONIDE 0.1 % CREAM 1 APPLICATION TO AFFECTED AREA EXTERNALLY DAILY IN AM TO AREAS ON BODY INVOLVED TAKING HYDROXYZINE HCL 25 MG TABLET 1 TABLET NEEDED ORALLY EVERY 8 HRS TAKING BETAMETHASONE DIPROPIONATE AUG 0.05 % GEL 1 APPLICATION TO AFFECTED AREA EXTERNALLY ONCE A DAY TO AREAS ON SCALP THAT ITCH TAKING HYDROCORTISONE 2.5 % CREAM 1 APPLICATION TO AFFECTED AREA RECTAL DAILY TO AREAS ON FACE WITH ITCHY RASH NOT-TAKING TRAMADOL HCL 50 MG TABLET 1 TABLET NEEDED ORALLY ONCE A DAY, NOTES: 10/26/2019 1900 NOT-TAKING TOPIRAMATE 100 MG TABLET 1 TABLET ORALLY BID, NOTES: 10/26/2019 1930 NOT-TAKING CREON 52359 UNIT CAPSULE DELAYED RELEASE PARTICLES DIRECTED ORALLY , NOTES: 10/26/2019 0700 NOT-TAKING ALOSETRON HCL 0.5 MG TABLET 1 TABLET ORALLY TWICE A DAY, NOTES: 10/26/2019 0700 NOT-TAKING LISINOPRIL 20 MG TABLET 1 TABLET ORALLY ONCE A DAY, NOTES: 10/26/2019 0430 MEDICATION LIST REVIEWED AND RECONCILED WITH THE PATIENT PAST MEDICAL HISTORY HYPERTENSION IBS CHRONIC BACK PAIN ALLERGIES PENICILLIN (FOR ALLERGIES USE ONLY): SOB SURGICAL HISTORY BREAST REDUCTION 04/2019 GALL BLADDER 2011 GASTRIC BYPASS 07/2013 HYSTERECTOMY 2009 BREAST LUMPECTOMY BILATERAL 2017 FAMILY HISTORY FATHER: , DIAGNOSED WITH HYPERTENSION MOTHER: ALIVE, DIABETES MATERNAL AUNT HAD PANCREATIC CANCER. DENIES ANY FAMILY HX OF MELANOMA. SOCIAL HISTORY GENERAL: TOBACCO USE ARE YOU A:NONSMOKER OTHERS AT HOME: LIVES WITH OTHERS. EDUCATION LEVEL OF EDUCATION:HIGH SCHOOL DIET: GASTRIC BYPASS. LANGUAGE LANGUAGES SPOKEN:CAPE VERDEAN NEW PATIENT PAIN DIARY PATIENT DESCRIBES PAIN :SORE FROM 0-10, WHAT LEVEL IS YOUR PAIN TODAY?3 PRECIPITATING FACTORS PT STATES THAT HOUSEWORK, LIFTING, STREUOUS ACTIVITY ALLEVIATING FACTORS REST, ICE/HEAT SLIGHT HELP IMPACT ON FUNCTION REDUCED ABILITY TO PREFORM DAILY ACTIVITY DO YOU HAVE ANY RASHES OR OPEN SORES?NO ANY CHANGE IN BOWEL OR BLADDER CONTROL?NO ARE YOU ALLERGIC TO SHELLFISH OR IV DYE?NO ARE YOU DIABETIC?NO DO YOU HAVE A PACEMAKER OR DEFIBRILLATOR?NO ANY NEW PROBLEMS WITH MEDICINES OR NEW ALLERGIESNO ANY NEW PATTERNS OF PAIN OR NUMBNESS?NO ANY CHANGE IN YOUR MEDICAL CONDITION?NO HAVE YOU FALLEN IN THE LAST 6 MONTHS?NO DO YOU USE ANY TYPE OF TOBACCO (SMOKE, SMOKELESS, CHEW, ETC.)NO ARE YOU ABUSED, NEGLECTED, OR IN AN UNSAFE ENVIRONMENT?NO DO YOU HAVE THOUGHTS OF HURTING YOURSELF OR SOMEONE ELSE?NO DO YOU NEED ANY PRESCRIPTIONS?NO DO YOU HAVE ANY OTHER QUESTIONS OR CONCERNS?NO RECREATIONAL DRUG USE DRUG USE?NO EXERCISE: REGULAR EXERCISE. LEARNING BARRIERS / SPECIAL NEEDS CHANGE FROM LAST VISIT? 06/06/19 BARRIERS TO LEARNING?NO HEARING IMPAIRED?NO VISION IMPAIRED?NO COGNITIVELY IMPAIRED?NO READINESS TO LEARN?YES LEARNING PREFERENCES?NO LEARNING CAPABILITIES PRESENT?YES EMOTIONAL BARRIERS?NO SPECIAL DEVICES?NO COLLECTION MANAGER NEEDED?NO PAIN CLINIC PFS, CLERGY, PUBLIC HEALTH REFERRALS HAS THE PATIENT BEEN EDUCATED REGARDING HIS/HER PLAN OF CARE?YES HAS THE PATIENT BEEN EDUCATED REGARDING PAIN, THE RISK FOR PAIN, THE IMPORTANCE OF EFFECTIVE PAIN MANAGEMENT, AND THE PAIN ASSESSMENT PROCESS?YES ORIENTED TO PAIN MANAGEMENT. PT ACKNOWLEDGED UNDERSTANDING. DS LATEX QUESTIONNAIRE LATEX ALLERGY : HAVE YOU EVER DEVELOPED ANY TYPE OF REACTION AFTER HANDLING LATEX PRODUCTS SUCH RUBBER GLOVES, CONDOMS, DIAPHRAGMS, BALLOONS, SOCKS, OR UNDERWEAR?NO LATEX ALLERGY : HAVE YOU EVER DEVELOPED ANY TYPE OF REACTION DURING OR AFTER DENTAL APPOINTMENT, VAGINAL/RECTAL EXAMINATION, SURGICAL PROCEDURE, OR ANY OTHER EXPOSURE?NO DATE ASKED : 09/26/2019 LATEX RISK : HAVE YOU EVER HAD ANY DIFFICULTY BREATHING OR HIVES AFTER EATING OR HANDLING ANY FRUITS, OR VEGETABLES; SUCH KIWI, BANANAS, STONE FRUITS, OR CHESTNUTSNO LATEX RISK : DO YOU HAVE A PREVIOUS PERSONAL HISTORY OF MORE THAN NINE SURGERIES, SPINA BIFIDA, OR REPEATED CATHERIZATIONS? NO LATEX RISK : ARE YOU FREQUENTLY EXPOSED TO LATEX PRODUCTS IN YOUR OCCUPATION?NO CAFFEINE CAFFEINE USE?NO ADVANCE DIRECTIVE ADVANCE DIRECTIVE DISCUSSED WITH PATIENT:YES PT STATES THAT SHE DOES NOT HAVE HCP, DECLINED INFORMATION AT THIS TIME. DS MORAVIAN MORAVIAN RELIGION MARITAL STATUS: . OCCUPATION: HOUSEWIFE. REVIEWED WITH PATIENT 10/27/2019 1376 JANETTE. HOSPITALIZATION/MAJOR DIAGNOSTIC PROCEDURE HYSTERECTOMY GASTRIC BYPASS GALL BLADDER BREAST REDUCTION REVIEW OF SYSTEMS REVIEWED BY: PROVIDER: . CONSTITUTIONAL: ANY CHANGE IN YOUR MEDICAL CONDITION? NO . CHILLS NO . FEVER NO . INFECTION: DO YOU HAVE NEW INFECTIONS? NO . DO YOU HAVE HISTORY OF MRSA? NO . MUSCULOSKELETAL: ANY NEW PATTERNS OF PAIN OR NUMBNESS? NO . GASTROENTEROLOGY: ANY NEW CHANGE IN BOWEL CONTROL? NO . GENITOURINARY: ANY NEW CHANGE IN BLADDER CONTROL? NO . IS THERE A CHANCE YOU COULD BE ? NO . HEMATOLOGY/LYMPH: DO YOU TAKE ANY BLOOD THINNERS? (FOR EXAMPLE- COUMADIN, PLAVIX, AGGRENOX, PLATEL, PRADAXA, OR XARELTO) NO . WHEN WAS YOUR LAST DOSE? DATE: TIME: . NEUROLOGY: HAVE YOU FALLEN IN THE PAST 12 MONTHS? NO . ANY NEW EXTREMITY NUMBNESS OR WEAKNESS? NO . CARDIOLOGY: DO YOU HAVE A PACEMAKER OR DEFIBRILLATOR? NO . RESPIRATORY: HAVE YOU BEEN SICK IN THE PAST WEEK? NO . FEVER NO . FLU LIKE SYMPTOMS? NO . COUGH NO . INTEGUMENTARY: DO YOU HAVE ANY RASHES OR OPEN SORES? NO . ALLERGIC/IMMUNO: ARE YOU ALLERGIC TO IV DYE? NO . ANY NEW ALLERGIES? NO . PSYCHIATRIC: DO YOU HAVE THOUGHTS OF HURTING YOURSELF OR SOMEONE ELSE? NO . ARE YOU ABUSED, NEGLECTED, OR IN AN UNSAFE ENVIRONMENT? NO . ENDOCRINOLOGY: ARE YOU DIABETIC? NO . OTHER: DO YOU NEED ANY PRESCRIPTIONS? NO . IF YES, PLEASE LIST: ____ . ANY NEW PROBLEMS WITH YOUR MEDICATIONS? NO . WHEN DID YOU LAST EAT? 10/26/2019 2200 . WHEN DID YOU LAST DRINK? 10/27/2019 0700 . WHAT DID YOU LAST DRINK? WATER . NAME OF PERSON DRIVING YOU HOME? RADHA . DO YOU HAVE ANY OTHER QUESTIONS OR CONCERNS NO . VITAL SIGNS WT 166.2 LBS, HT 63 IN, BMI 29.44 INDEX, BP 126/77 MM HG, HR 62 /MIN, RR 18 /MIN, TEMP 97.5 F, OXYGEN SAT % 100%, SAFE IN ENV? (Y/N) YES, NA INITIALS AW 0940, REVIEWED BY: JANETTE. ASSESSMENTS SACROILIITIS - M46.1 (PRIMARY) TREATMENT SACROILIITIS [facility] FLUORO GUIDANCE (PAIN)[id number] PROCEDURES PN SI PRE PROCEDURE DIAGNOSIS SACROILIITIS, SACROILIAC JOINT DYSFUNCTION POST PROCEDURE DIAGNOSIS SACROILIITIS, SACROILIAC JOINT DYSFUNCTION PROCEDURE BILATERAL SACROILIAC JOINT BLOCK SURGEON DR. ERVIN GUADARRAMA STUDENT NONE ANESTHESIA LOCAL PRE PROCEDURE NOTE PATIENT WITH HISTORY OF CHRONIC LOW BACK PAIN. I EVALUATED THE PATIENT AND REVIEWED THE CHART. I WENT OVER THE RISKS, ALTERNATIVES, AND BENEFITS ASSOCIATED WITH THIS PROCEDURE. THE PATIENT WOULD LIKE TO PROCEED AND GAVE CONSENT TO PERFORM THE PROCEDURE. THE PATIENT DENIES UNEXPLAINABLE WEIGHT LOSS, FEVER, CHILLS, OR NEW CHANGES IN URINARY OR BOWEL CONTROL DESCRIPTION OF PROCEDURE THE PATIENT WAS BROUGHT TO THE PROCEDURE ROOM AND PLACED IN THE PRONE POSITION. THE LUMBOSACRAL AREA WAS CLEANED WITH CHLORAPREP SOLUTION AND DRAPED ASEPTICALLY. THE PROCEDURE WAS DONE UNDER STERILE CONDITIONS. I CHECKED LATERALITY AND THE LEVEL WHERE THE PROCEDURE WAS GOING TO BE PERFORMED WITH THE PATIENT AND THE SUPPORTING STAFF AT THE MOMENT OF THE TIME OUT IN THE PROCEDURE ROOM. UNDER FLUOROSCOPIC GUIDANCE, TARGET POINT WAS SELECTED AT THE LOWER BORDER OF THE RIGHT AND LEFT SACROILIAC JOINT. TARGET POINT WAS SELECTED AFTER MEDIAL ROTATION AND TILT OF THE MAGNIFIER OF THE C-ARM. LIDOCAINE WAS USED TO NUMB THE SKIN AND SUBCUTANEOUS TISSUE BELOW IT. A SPINAL NEEDLE, 22-GAUGE, WAS ADVANCED UNDER FLUOROSCOPIC GUIDANCE AND FOLLOWING PATIENT FEEDBACK UNTIL THE TARGET AREA WAS TOUCHED. THE POSITION OF THE NEEDLE WAS VERIFIED WITH AP AND LATERAL VIEWS. AFTER PROPER POSITION OF THE NEEDLE WAS ACHIEVED, ISOVUE M DYE 30%, 0.25 ML, WAS INJECTED SHOWING SPREAD OF THE DYE. THEN, A SOLUTION OF 30 MG OF KENALOG WAS INJECTED IN RIGHT AND LEFT JOINT WITH 3 ML OF BUPIVACAINE 0.125%. THERE WAS NO EVIDENCE OF BLOOD, PARESTHESIA OR CEREBROSPINAL FLUID DURING THE PROCEDURE. THE PATIENT WAS SENT TO THE RECOVERY ROOM. THE PATIENT WAS MOVING THE EXTREMITIES AND DOING WELL. THERE WAS NO COMPLICATION DURING THE PROCEDURE. FLUOROSCOPY TIME WAS 22 SECONDS POST PROCEDURE NOTE THE PATIENT WILL BE SEEN IN A FOLLOW UP IN THE NEXT FEW WEEKS. INSTRUCTIONS WERE GIVEN, QUESTIONS WERE ANSWERED, AND THE PATIENT EXPRESSED UNDERSTANDING AND AGREED WITH THE PLAN. I, CROW HERNANDEZ, DOCUMENTED THE ABOVE INFORMATION ACTING A SCRIBE FOR DR. GUADARRAMA. I HAVE REVIEWED THE ABOVE DOCUMENT, WRITTEN BY CROW FAYE AND I VERIFY THAT IT IS ACCURATE. PROCEDURE CODES 50150 INJECT SACROILIAC JOINT, MODIFIERS: 50 [id number] RADXPS IN END [id number] PXD DISPOSITION & COMMUNICATION FOLLOW UP 3 WEEKS ELECTRONICALLY SIGNED BY ERVIN GUADARRAMA MD, MD ON 11/14/2019 AT 09:29 AM EST DISCLAIMER : THIS IS A VISIT SUMMARY EXTRACTED FROM THE [employer] CHART. IT IS NOT A COPY OF THE [employer] PROGRESS NOTE. TIMMY
== END ==
LOC: M PAIN 09:45
PROVIDERS: ATTEND Anesthesiology
DX: M46.1 Sacroiliitis, not elsewhere classified (principal)
CPT/HCPCS: G0260; J3301; Q9967

== ENCOUNTER → 2019-11-17 | Outpatient (CLI) | payer OTHER ==
[~2019-11-17] MED LIST changes: -BUPIVACAINE HCL 0.25% 30 ML VIAL As Ordered ONE; -ISOVUE-M 300 61% 15ML VIAL (Q9967) As Ordered ONE; -LIDOCAINE 1% SDV INJ 30 ML VIAL As Ordered ONE; -TRIAMCINOLONE ACETONIDE SUSP 40 MG/ML VIAL (J3301) As Ordered ONE; -diazePAM 2 MG TAB As Ordered ONE
--- NOTE | 2019-11-19 00:26 | ECWPNPC ---
PATIENT NAME: ARELY DAVIS : 1965 GENDER: FEMALE VISIT DATE: 11/17/2019 DISCHARGE DATE: 11/17/19 1538 VISIT LOCKED DATE TIME: PHYSICIAN: ALMAS DAN RESOURCE: ALMAS DAN REASON FOR APPOINTMENT 1. POST PROCEDURE HISTORY OF PRESENT ILLNESS HISTORY OF PRESENT ILLNESS: HERE FOR POST PROCEDURE FOLLOW-UP. HAD BILATERAL SIJ AND 10/27/2019. REPORTING SOME IMPROVEMENT IN PAIN THAT CONTINUES TODAY. CONTINUES TO SUFFER FROM HIGH LEVELS OF PAIN. PAIN IS AGGRAVATED BY BENDING TO SHAVE HER LEGS. RATING PAIN LEVEL A 4/10 VAS. REVIEWED MRI OF THE LUMBOSACRAL SPINE AND DISCUSSED TREATMENT OPTIONS. PAIN THE PATIENT DESCRIBES THE PAIN... FALL RISK SCREENING: SCREENING :NO FALLS REPORTED IN THE LAST YEAR CURRENT MEDICATIONS TAKING TRAMADOL HCL 50 MG TABLET 1 TABLET NEEDED ORALLY ONCE A DAY TAKING TOPIRAMATE 100 MG TABLET 1 TABLET ORALLY BID TAKING CREON 17015 UNIT CAPSULE DELAYED RELEASE PARTICLES DIRECTED ORALLY TAKING ALOSETRON HCL 0.5 MG TABLET 1 TABLET ORALLY TWICE A DAY TAKING LISINOPRIL 20 MG TABLET 1 TABLET ORALLY ONCE A DAY NOT-TAKING PREDNISONE 10 MG TABLET 1 TABLET ORALLY ONCE A DAY NOT-TAKING TRIAMCINOLONE ACETONIDE 0.1 % CREAM 1 APPLICATION TO AFFECTED AREA EXTERNALLY DAILY IN AM TO AREAS ON BODY INVOLVED NOT-TAKING HYDROXYZINE HCL 25 MG TABLET 1 TABLET NEEDED ORALLY EVERY 8 HRS NOT-TAKING BETAMETHASONE DIPROPIONATE AUG 0.05 % GEL 1 APPLICATION TO AFFECTED AREA EXTERNALLY ONCE A DAY TO AREAS ON SCALP THAT ITCH NOT-TAKING HYDROCORTISONE 2.5 % CREAM 1 APPLICATION TO AFFECTED AREA RECTAL DAILY TO AREAS ON FACE WITH ITCHY RASH MEDICATION LIST REVIEWED AND RECONCILED WITH THE PATIENT PAST MEDICAL HISTORY HYPERTENSION IBS CHRONIC BACK PAIN ALLERGIES PENICILLIN (FOR ALLERGIES USE ONLY): SOB SURGICAL HISTORY BREAST REDUCTION 04/2019 GALL BLADDER 2011 GASTRIC BYPASS 07/2013 HYSTERECTOMY 2009 BREAST LUMPECTOMY BILATERAL 2017 FAMILY HISTORY FATHER: , DIAGNOSED WITH HYPERTENSION MOTHER: ALIVE, DIABETES MATERNAL AUNT HAD PANCREATIC CANCER. DENIES ANY FAMILY HX OF MELANOMA. SOCIAL HISTORY GENERAL: TOBACCO USE ARE YOU A:NONSMOKER OTHERS AT HOME: LIVES WITH OTHERS. EDUCATION LEVEL OF EDUCATION:HIGH SCHOOL DIET: GASTRIC BYPASS. LANGUAGE LANGUAGES SPOKEN:FRISIAN NEW PATIENT PAIN DIARY PATIENT DESCRIBES PAIN :SORE FROM 0-10, WHAT LEVEL IS YOUR PAIN TODAY?3 PRECIPITATING FACTORS PT STATES THAT HOUSEWORK, LIFTING, STREUOUS ACTIVITY ALLEVIATING FACTORS REST, ICE/HEAT SLIGHT HELP IMPACT ON FUNCTION REDUCED ABILITY TO PREFORM DAILY ACTIVITY DO YOU HAVE ANY RASHES OR OPEN SORES?NO ANY CHANGE IN BOWEL OR BLADDER CONTROL?NO ARE YOU ALLERGIC TO SHELLFISH OR IV DYE?NO ARE YOU DIABETIC?NO DO YOU HAVE A PACEMAKER OR DEFIBRILLATOR?NO ANY NEW PROBLEMS WITH MEDICINES OR NEW ALLERGIESNO ANY NEW PATTERNS OF PAIN OR NUMBNESS?NO ANY CHANGE IN YOUR MEDICAL CONDITION?NO HAVE YOU FALLEN IN THE LAST 6 MONTHS?NO DO YOU USE ANY TYPE OF TOBACCO (SMOKE, SMOKELESS, CHEW, ETC.)NO ARE YOU ABUSED, NEGLECTED, OR IN AN UNSAFE ENVIRONMENT?NO DO YOU HAVE THOUGHTS OF HURTING YOURSELF OR SOMEONE ELSE?NO DO YOU NEED ANY PRESCRIPTIONS?NO DO YOU HAVE ANY OTHER QUESTIONS OR CONCERNS?NO RECREATIONAL DRUG USE DRUG USE?NO EXERCISE: REGULAR EXERCISE. LEARNING BARRIERS / SPECIAL NEEDS CHANGE FROM LAST VISIT? 06/06/19 BARRIERS TO LEARNING?NO HEARING IMPAIRED?NO VISION IMPAIRED?NO COGNITIVELY IMPAIRED?NO READINESS TO LEARN?YES LEARNING PREFERENCES?NO LEARNING CAPABILITIES PRESENT?YES EMOTIONAL BARRIERS?NO SPECIAL DEVICES?NO SOFTWARE APPLICATIONS SPECIALIST NEEDED?NO PAIN CLINIC PFS, CLERGY, PUBLIC HEALTH REFERRALS HAS THE PATIENT BEEN EDUCATED REGARDING HIS/HER PLAN OF CARE?YES HAS THE PATIENT BEEN EDUCATED REGARDING PAIN, THE RISK FOR PAIN, THE IMPORTANCE OF EFFECTIVE PAIN MANAGEMENT, AND THE PAIN ASSESSMENT PROCESS?YES ORIENTED TO PAIN MANAGEMENT. PT ACKNOWLEDGED UNDERSTANDING. DS LATEX QUESTIONNAIRE LATEX ALLERGY : HAVE YOU EVER DEVELOPED ANY TYPE OF REACTION AFTER HANDLING LATEX PRODUCTS SUCH RUBBER GLOVES, CONDOMS, DIAPHRAGMS, BALLOONS, SOCKS, OR UNDERWEAR?NO LATEX ALLERGY : HAVE YOU EVER DEVELOPED ANY TYPE OF REACTION DURING OR AFTER DENTAL APPOINTMENT, VAGINAL/RECTAL EXAMINATION, SURGICAL PROCEDURE, OR ANY OTHER EXPOSURE?NO LATEX RISK : HAVE YOU EVER HAD ANY DIFFICULTY BREATHING OR HIVES AFTER EATING OR HANDLING ANY FRUITS, OR VEGETABLES; SUCH KIWI, BANANAS, STONE FRUITS, OR CHESTNUTSNO LATEX RISK : DO YOU HAVE A PREVIOUS PERSONAL HISTORY OF MORE THAN NINE SURGERIES, SPINA BIFIDA, OR REPEATED CATHERIZATIONS? NO LATEX RISK : ARE YOU FREQUENTLY EXPOSED TO LATEX PRODUCTS IN YOUR OCCUPATION?NO DATE ASKED : 09/26/2019 CAFFEINE CAFFEINE USE?NO ADVANCE DIRECTIVE ADVANCE DIRECTIVE DISCUSSED WITH PATIENT:YES 11/17/2019 PT STATES THAT SHE DOES NOT HAVE HCP, DECLINED INFORMATION AT THIS TIME. JS YAZDANISM YAZDANISM MOSQUE MARITAL STATUS: . ALCOHOL SCREENING DID YOU HAVE A DRINK CONTAINING ALCOHOL IN THE PAST YEAR?NO POINTS0 INTERPRETATIONNEGATIVE OCCUPATION: HOUSEWIFE. HOSPITALIZATION/MAJOR DIAGNOSTIC PROCEDURE HYSTERECTOMY GASTRIC BYPASS GALL BLADDER BREAST REDUCTION REVIEW OF SYSTEMS REVIEWED BY: PROVIDER: ALMAS PETERS . CONSTITUTIONAL: ANY CHANGE IN YOUR MEDICAL CONDITION? NO . CHILLS NO . FEVER NO . INFECTION: DO YOU HAVE NEW INFECTIONS? NO . DO YOU HAVE HISTORY OF MRSA? NO . MUSCULOSKELETAL: ANY NEW PATTERNS OF PAIN OR NUMBNESS? NO . GASTROENTEROLOGY: ANY NEW CHANGE IN BOWEL CONTROL? NO . GENITOURINARY: ANY NEW CHANGE IN BLADDER CONTROL? NO . IS THERE A CHANCE YOU COULD BE ? NO . HEMATOLOGY/LYMPH: DO YOU TAKE ANY BLOOD THINNERS? (FOR EXAMPLE- COUMADIN, PLAVIX, AGGRENOX, PLATEL, PRADAXA, OR XARELTO) NO . WHEN WAS YOUR LAST DOSE? DATE: TIME: . NEUROLOGY: HAVE YOU FALLEN IN THE PAST 12 MONTHS? NO . ANY NEW EXTREMITY NUMBNESS OR WEAKNESS? NO . CARDIOLOGY: DO YOU HAVE A PACEMAKER OR DEFIBRILLATOR? NO . RESPIRATORY: HAVE YOU BEEN SICK IN THE PAST WEEK? NO . FEVER NO . FLU LIKE SYMPTOMS? NO . COUGH NO . INTEGUMENTARY: DO YOU HAVE ANY RASHES OR OPEN SORES? NO . ALLERGIC/IMMUNO: ARE YOU ALLERGIC TO IV DYE? NO . ANY NEW ALLERGIES? NO . PSYCHIATRIC: DO YOU HAVE THOUGHTS OF HURTING YOURSELF OR SOMEONE ELSE? NO . ARE YOU ABUSED, NEGLECTED, OR IN AN UNSAFE ENVIRONMENT? NO . ENDOCRINOLOGY: ARE YOU DIABETIC? NO . OTHER: DO YOU NEED ANY PRESCRIPTIONS? NO . IF YES, PLEASE LIST: ____ . ANY NEW PROBLEMS WITH YOUR MEDICATIONS? NO . WHEN DID YOU LAST EAT? ____ . WHEN DID YOU LAST DRINK? ____ . WHAT DID YOU LAST DRINK? ____ . NAME OF PERSON DRIVING YOU HOME? ____ . DO YOU HAVE ANY OTHER QUESTIONS OR CONCERNS YES, STATES SHE STOPPED TAKING HER TRAMADOL PRIOR TO THE INJECTION TO SEE IF THE INJECTION WOULD HELP HER. STATES SHE TOOK IT FOR 4 WEEKS AND THEN STOPPED IT AND HASN'T BEEN ABLE TO SLEEP WELL SINCE STOPPING IT. STATES NO ISSUES WITH SLEEPING PRIOR TO STARTING THE TRAMADOL OR WHILE SHE WAS TAKING IT . VITAL SIGNS WT 165 LBS, HT 63 IN, BMI 29.23 INDEX, BP 120/76 MM HG, HR 65 /MIN, RR 18 /MIN, TEMP 98.2 F, OXYGEN SAT % 100%, SAFE IN ENV? (Y/N) YES, REVIEWED BY: [facility]. EXAMINATION GENERAL EXAMINATION: GENERAL AWAKE,ALERT ,PLEASANT . PSYCH AFFECT NORMAL . LUNGS: LUNG CAI ARE CLEAR TO AUSCULTATION BILATERALLY. GOOD MOVEMENT OF AIR . HEART: S1, S2 IN A REGULAR RATE AND RHYTHM. NO SIGNIFICANT MURMURS, RUBS OR GALLOPS NOTED . LUMBAR: PALPATION: + FOR PAIN OVER L/S SPINE. + FOR PAIN OVER L/S PARASPINALS . DIAGNOSTIC TESTS REVIEWEDMRI L/S SPINE 07/01/2019 . ASSESSMENTS LUMBAR DISC DISORDER - M51.9 (PRIMARY) TREATMENT LUMBAR DISC DISORDER NOTES: L4/5 LESI. PREVENTIVE MEDICINE PAIN CLINIC TEACHING: PROCEDURE TEACHING PRINTED AND REVIEWED INFORMATION ON LUMBAR EPIDURAL STEROID INJECTION PROCEDURE WITH PATIENT. ALSO REVIEWED PRE-PROCEDURE INSTRUCTIONS. PATIENT VERBALIZED AN UNDERSTANDING. NIECY JUSTIN 11/17/2019 3:54:11 PM > . PROCEDURE CODES FA211 ESTABILISHED PATIENT [facility] CHARGE DISPOSITION & COMMUNICATION FOLLOW UP POST (REASON: L4/5 LESI) ELECTRONICALLY SIGNED BY FRAN COLE ON 11/18/2019 AT 11:41 AM EST DISCLAIMER : THIS IS A VISIT SUMMARY EXTRACTED FROM THE [employer] CHART. IT IS NOT A COPY OF THE [employer] PROGRESS NOTE. TIMMY
== END ==
LOC: M PAIN 14:00
PROVIDERS: ATTEND Nurse Practitioner Family
DX: M51.9 Unspecified thoracic, thoracolumbar and lumbosacral intervertebral disc disorder (principal); I10 Essential (primary) hypertension; Z98.84 Bariatric surgery status; Z88.0 Allergy status to penicillin; Z79.899 Other long term (current) drug therapy

== ENCOUNTER → 2020-02-25 | Outpatient (CLI) | payer OTHER | LOC: M LABSMTC 10:32 | PROVIDERS: ATTEND Anesthesiology | DX: Z03.818 Encounter for observation for suspected exposure to other biological agents ruled out (principal) | CPT/HCPCS: C9803; U0003 ==

== ENCOUNTER → 2020-02-28 | Outpatient (CLI) | payer OTHER ==
[~2020-02-28] MED LIST changes: +ISOVUE-M 300 61% 15ML VIAL As Ordered ONE; +LIDOCAINE 1% SDV 30ML VIAL As Ordered ONE; +dexameTHASONE 10MG/1ML VIAL PRES.FREE (J1100 PER 1MG) As Ordered ONE; +diazePAM 2 MG TAB As Ordered ONE
--- NOTE | 2020-02-28 13:12 | REP ---
Lumbar spine: Single view partial. History: Lumbar epidural for pain. 5 seconds of fluoroscopy time is reported. Findings: A single last image hold fluoroscopically obtained spot radiograph of the lumbar spine documents needle position and contrast injection associated with injection procedure. Electronically Signed by Warren Santacruz MD 02/28/2020 01:03 P
--- NOTE | 2020-03-01 07:04 | ECWPNPC ---
PATIENT NAME: ARELY DAVIS : 1965 GENDER: FEMALE VISIT DATE: 02/28/2020 DISCHARGE DATE: 02/28/20 1316 VISIT LOCKED DATE TIME: PHYSICIAN: ERVIN GUADARRAMA MD RESOURCE: ERVNI GUADARRAMA MD REASON FOR APPOINTMENT 1. L4/5 LESI/PAT DONE HISTORY OF PRESENT ILLNESS GENERAL: -. FALL RISK SCREENING: SCREENING :NO FALLS REPORTED IN THE LAST YEAR PAIN SCREENING: PATIENT HAS A COMPLAINT OF ACUTE OR CHRONIC PAIN :YES LOCATION OF PAIN:LOW BACK INTENSITY OF PAIN (SCALE OF 1 TO 10):5 WHAT DOES YOUR PAIN FEEL LIKE:ACHING, CONTINOUS, OTHER "PAIN" DURATION:ALL DAY, MAINLY DURING THE DAY, INTERMITTENT, AWAKENS FROM SLEEP PAIN IS INCREASED BY:ACTIVITIES LIFTING GROCERY BAGS, BENDING OVER, SCRUBBING BATH TUBS PAIN IS DECREASED BY: TYLENOL, ICE NURSING NOTE: -. PAIN CENTER INTAKE QUESTIONS: DO YOU HAVE A HISTORY OF MRSA? :NO DO YOU TAKE A BLOOD THINNERS? :NO DO YOU HAVE ANY BLEEDING DISORDERS? :NO ANY NEW NUMBNESS OR WEAKNESS IN YOUR LEGS OR ARMS? :NO ANY PACEMAKER,DEFIBRILLATOR, OR DORSAL COLUMN STIMULATOR? :NO DO YOU HAVE ANY RASHES OR OPEN SORES? :NO ARE YOU ALLERGIC TO IV DYE? :NO ARE YOU DIABETIC? :NO ANY NEW PROBLEMS WITH YOUR MEDICATIONS? :NO HAVE YOU RECEIVED A VACCINE IN THE PAST 30 DAYS? :NO DO YOU PLAN TO RECEIVE A VACCINE IN THE NEXT 21 DAYS? :NO DO YOU TAKE ANY IMMUNOSUPPRESSIVE MEDICATIONS? :YES TOPICAL CREAM ANY HISTORY OF SEIZURES? :NO ANY HISTORY OF CARDIAC ISSUES OR EVENTS? :YES HEART MURMUR DO YOU HAVE SLEEP APNEA? : NO. ANY RECENT HEAD INJURY? :NO DO YOU HAVE ANY NEW INFECTIONS? :NO IS THERE A CHANCE YOU COULD BE ? :NO ARE YOU BREAST FEEDING? :NO WHEN DID YOU LAST EAT? : -LAST NIGHT WHEN DID YOU LAST DRINK? : -THIS MORNING WATER WHAT DID YOU LAST DRINK? : -WATER NAME OF PERSON DRIVING YOU HOME? : RADHA DO YOU HAVE ANY OTHER QUESTIONS OR CONCERNS? : NO CURRENT MEDICATIONS TAKING TRIAMCINOLONE ACETONIDE 0.1 % CREAM 1 APPLICATION TO AFFECTED AREA EXTERNALLY DAILY IN AM TO AREAS ON BODY INVOLVED NEEDED, NOTES: THE OTHER DAY TAKING BETAMETHASONE DIPROPIONATE AUG 0.05 % GEL 1 APPLICATION TO AFFECTED AREA EXTERNALLY ONCE A DAY TO AREAS ON SCALP THAT ITCH NEEDED, NOTES: THE OTHER DAY TAKING HYDROCORTISONE 2.5 % CREAM 1 APPLICATION TO AFFECTED AREA RECTAL DAILY TO AREAS ON FACE WITH ITCHY RASH NEEDED, NOTES: THE OTHER DAY TAKING TRAMADOL HCL 50 MG TABLET 1 TABLET NEEDED ORALLY ONCE A DAY, NOTES: 02-27-202099 TAKING TOPIRAMATE 100 MG TABLET 1 TABLET ORALLY BID, NOTES: 02-27-202099 TAKING CREON 79404 UNIT CAPSULE DELAYED RELEASE PARTICLES 1 CAP ORALLY THREE TIMES DAILY, NOTES: 02-28-20799 TAKING ALOSETRON HCL 0.5 MG TABLET 1 TABLET ORALLY TWICE A DAY, NOTES: 02-27-202099 TAKING LISINOPRIL 20 MG TABLET 1 TABLET ORALLY ONCE A DAY, NOTES: 02-28-20799 NOT-TAKING PREDNISONE 10 MG TABLET 1 TABLET ORALLY ONCE A DAY NOT-TAKING HYDROXYZINE HCL 25 MG TABLET 1 TABLET NEEDED ORALLY EVERY 8 HRS MEDICATION LIST REVIEWED AND RECONCILED WITH THE PATIENT PAST MEDICAL HISTORY HYPERTENSION IBS CHRONIC BACK PAIN ALLERGIC CONTACT DERNATITIS MELONOCYATIC NEVI OBESITY ALLERGIES PENICILLIN (FOR ALLERGIES USE ONLY): SOB SURGICAL HISTORY BREAST REDUCTION 04/2019 GALL BLADDER 2011 GASTRIC BYPASS 07/2013 HYSTERECTOMY 2009 BREAST LUMPECTOMY BILATERAL 2017 FAMILY HISTORY FATHER: , DIAGNOSED WITH HYPERTENSION MOTHER: ALIVE, DIABETES MATERNAL AUNT HAD PANCREATIC CANCER. DENIES ANY FAMILY HX OF MELANOMA. SOCIAL HISTORY GENERAL: TOBACCO USE ARE YOU A:NONSMOKER LATEX QUESTIONNAIRE LATEX ALLERGY : HAVE YOU EVER DEVELOPED ANY TYPE OF REACTION AFTER HANDLING LATEX PRODUCTS SUCH RUBBER GLOVES, CONDOMS, DIAPHRAGMS, BALLOONS, SOCKS, OR UNDERWEAR?NO LATEX ALLERGY : HAVE YOU EVER DEVELOPED ANY TYPE OF REACTION DURING OR AFTER DENTAL APPOINTMENT, VAGINAL/RECTAL EXAMINATION, SURGICAL PROCEDURE, OR ANY OTHER EXPOSURE?NO LATEX RISK : HAVE YOU EVER HAD ANY DIFFICULTY BREATHING OR HIVES AFTER EATING OR HANDLING ANY FRUITS, OR VEGETABLES; SUCH KIWI, BANANAS, STONE FRUITS, OR CHESTNUTSNO LATEX RISK : DO YOU HAVE A PREVIOUS PERSONAL HISTORY OF MORE THAN NINE SURGERIES, SPINA BIFIDA, OR REPEATED CATHERIZATIONS? NO LATEX RISK : ARE YOU FREQUENTLY EXPOSED TO LATEX PRODUCTS IN YOUR OCCUPATION?NO DATE ASKED : 02/27/2020 ALCOHOL SCREENING DID YOU HAVE A DRINK CONTAINING ALCOHOL IN THE PAST YEAR?NO POINTS0 INTERPRETATIONNEGATIVE RECREATIONAL DRUG USE DRUG USE?NO CAFFEINE CAFFEINE USE?NO EVANGELICAL EVANGELICAL YARSANISM LANGUAGE LANGUAGES SPOKEN:KYRGYZ EDUCATION LEVEL OF EDUCATION:HIGH SCHOOL LEARNING BARRIERS / SPECIAL NEEDS BARRIERS TO LEARNING?NO HEARING IMPAIRED?NO VISION IMPAIRED?NO COGNITIVELY IMPAIRED?NO READINESS TO LEARN?YES LEARNING PREFERENCES?NO LEARNING CAPABILITIES PRESENT?YES EMOTIONAL BARRIERS?NO SPECIAL DEVICES?NO ROLLER SHOP SUPERVISOR NEEDED?NO DOMESTIC VIOLENCE DO YOU FEEL SAFE IN YOUR ENVIRONMENT?YES OCCUPATION: HOUSEWIFE. DIET: GASTRIC BYPASS. EXERCISE: REGULAR EXERCISE. MARITAL STATUS: . OTHERS AT HOME: LIVES WITH OTHERS. PAIN CLINIC PFS, CLERGY, PUBLIC HEALTH REFERRALS HAS THE PATIENT BEEN EDUCATED REGARDING HIS/HER PLAN OF CARE?YES HAS THE PATIENT BEEN EDUCATED REGARDING PAIN, THE RISK FOR PAIN, THE IMPORTANCE OF EFFECTIVE PAIN MANAGEMENT, AND THE PAIN ASSESSMENT PROCESS?YES ADVANCE DIRECTIVE ADVANCE DIRECTIVE DISCUSSED WITH PATIENT:YES 02/27/2020 PT. STATES SHE DOES NOT HAVE ANY ADVANCED DIRECTIVES AND SHE DECLINES INFORMATION ON HCP AT THIS TIME. AD HOSPITALIZATION/MAJOR DIAGNOSTIC PROCEDURE HYSTERECTOMY GASTRIC BYPASS GALL BLADDER BREAST REDUCTION VITAL SIGNS WT 170.8 LBS, HT 63 IN, BMI 30.25 INDEX, BP 111/72 MM HG, HR 66 /MIN, RR 18 /MIN, TEMP 97.9 F, OXYGEN SAT % 99%, SAFE IN ENV? (Y/N) YES, NA INITIALS SC 11:01, REVIEWED BY: CLARISSA. EXAMINATION GENERAL EXAMINATION: THE PATIENT IS ALERT, ORIENTED TIMES THREE AND COOPERATIVE. HEART SHOWS REGULAR RHYTHM, NO MURMURS AND NO GALLOPS. LUNGS ARE CLEAR TO AUSCULTATION. ASSESSMENTS INTERVERTEBRAL DISC DISORDERS WITH RADICULOPATHY, LUMBAR REGION - M51.16 (PRIMARY) TREATMENT INTERVERTEBRAL DISC DISORDERS WITH RADICULOPATHY, LUMBAR REGION [facility] FLUORO GUIDE SPINE INJECTION (PAIN)[id number] PROCEDURES PAIN NURSING RECORD PRE-PROCEDURE IV SITE RIGHT ANTECUBITAL, IV STARTED # 22, IV STARTED BY: Soledad BAUER RN, IV ATTEMPTS 1ST ATTEMPT, PRE-PROCEDURE ORAL MEDICATIONS 2 MG VALIUM PO [id number] PROCEDURE IN ROOM 1230, PHYSICIAN IN ROOM 1235, START 1240, FINISH 1247, PHYSICIAN OUT OF ROOM 1250, OUT OF ROOM 1255 BY STRETCHER, STEROID DEXAMTHASONE, O2 RA, ECG NORMAL SINUS, PATIENT SHIELDED YES, SAFETY STRAP YES, IV INFUSED NO FLUIDS IV STARTED IN RIGHT AC IT IS HER FIRST LUMBAR EPIDURAL IV REMOVED CATHETER IN TACT AND SITE CLEAR APPLIED 2 BY 2 SECURED WITH TAPE, DRESSING TEGADERM LOC: 1. ALERT, ORIENTED RESP: 1. REGULAR, NO DYSPNEA COLOR: 1. PINK SKIN: 1. WARM, DRY POSITION: 1. PRONE VITALS: 134/65 69 100 % 18 KGULLO RN 1230 128/85 67 100% 18 KGULLO RN 1245 DISCHARGE: POST PAIN PT RATES PAIN A 4 AND "QUITE TENDER", DRESSING SITE DRY AND INTACT, IV REMOVED IV AND SITE IS CLEAR, GAIT STEADY ,,,SLOW PRE PROCEDURE DIAGNOSIS LUMBAR DISC DISORDER WITH RADICULOPATHY POST PROCEDURE DIAGNOSIS LUMBAR DISC DISORDER WITH RADICULOPATHY PROCEDURE LUMBAR EPIDURAL STEROID INJECTION UNDER FLUOROSCOPIC GUIDANCE SURGEON DR. ERVIN GUADARRAMA LINKER UP NONE ANESTHESIA LOCAL PRE PROCEDURE NOTE THE PATIENT HAS A HISTORY OF CHRONIC LOW BACK PAIN. I EVALUATED THE PATIENT AND REVIEWED THE CHART. I WENT OVER THE RISKS, ALTERNATIVES, AND BENEFITS ASSOCIATED WITH THIS PROCEDURE. I DISCUSSED THAT THE USE OF STEROIDS MAY CONTRIBUTE TO IMMUNOSUPPRESSION OF THE PATIENT'S BODY AGAINST INFECTIONS SUCH COVID-19. THE PATIENT IS AWARE OF THE POTENTIAL COMPLICATIONS ASSOCIATED WITH THIS VIRUS, INCLUDING, BUT NOT LIMITED TO, . THE PATIENT WOULD LIKE TO PROCEED AND GIVE CONSENT TO PERFORMED THE PROCEDURE. THE PATIENT DENIES UNEXPLAINABLE WEIGHT LOSS, FEVER, CHILLS, OR NEW CHANGES IN URINARY OR BOWEL CONTROL. THE PATIENT IS COVID-19 NEGATIVE DESCRIPTION OF PROCEDURE THE PATIENT WAS BROUGHT TO THE PROCEDURE ROOM AND PLACED IN THE PRONE POSITION. THE LUMBOSACRAL AREA WAS CLEANED WITH BETADINE SOLUTION AND DRAPED ASEPTICALLY. THE PROCEDURE WAS DONE UNDER STERILE CONDITIONS. A TIMEOUT WAS PERFORMED WHERE LATERALITY AND THE SITE OF THE PROCEDURE WERE CHECKED AND CONFIRMED WITH EVERYONE IN THE ROOM. UNDER FLUOROSCOPIC GUIDANCE, THE TARGET POINT WAS SELECTED AT THE INTERLAMINAR LEVEL OF L5-S1. LIDOCAINE WAS USED TO NUMB THE SKIN AND THE SUBCUTANEOUS TISSUE BELOW IT. EPIDURAL TUOHY NEEDLE, 17-GAUGE, WAS ADVANCED UNDER FLUOROSCOPIC GUIDANCE AND FOLLOWING PATIENT FEEDBACK UNTIL THE EPIDURAL SPACE WAS REACHED 6 CM DEEP INTO THE SKIN BY THE LOSS OF RESISTANCE TECHNIQUE. ISOVUE-M DYE 30%, 0.25 ML, WAS INJECTED SHOWING ADEQUATE SPREAD OF THE DYE. THEN, A SOLUTION OF 3 ML OF NORMAL SALINE WITH DEXAMETHASONE 10 MG WAS INJECTED SLOWLY FOLLOWING PATIENT FEEDBACK. THERE WAS NO EVIDENCE OF BLOOD, PARESTHESIA OR CEREBROSPINAL FLUID DURING THE PROCEDURE. THE PATIENT WAS SENT TO THE RECOVERY ROOM. THE PATIENT WAS MOVING THE EXTREMITIES AND DOING WELL. THERE WERE NO COMPLICATIONS DURING THE PROCEDURE. EBL LESS THAN 5 ML. FLUOROSCOPY TIME WAS 5 SECONDS POST PROCEDURE NOTE THE PATIENT WILL BE SEEN IN A FOLLOW UP IN THE NEXT FEW WEEKS. I AM LOOKING FOR LONG LASTING RELIEF FOR THE PATIENT WITH THIS INTERVENTION. INSTRUCTIONS WERE GIVEN, QUESTIONS WERE ANSWERED, AND THE PATIENT EXPRESSED UNDERSTANDING AND AGREES WITH THE PLAN. THE PATIENT IS AWARE TO STAY HOME FOR THE NEXT WEEK, IF POSSIBLE, DUE TO COVID-19. I, JESUS STEWART, DOCUMENTED THE ABOVE INFORMATION ACTING A SCRIBE FOR DR. GUADARRAMA. I HAVE REVIEWED THE ABOVE DOCUMENT, WRITTEN BY JESUS STEWART, [employer], AND I VERIFY THAT IT IS ACCURATE [id number]. PROCEDURE CODES 37478 LUMBAR/SACRAL W/ IMAGING DISPOSITION & COMMUNICATION FOLLOW UP F/UP WITH TANK OPERATOR (REASON: POST LESI L5-S1) ELECTRONICALLY SIGNED BY ERVIN GUADARRAMA MD, MD ON 02/29/2020 AT 05:22 PM EDT DISCLAIMER : THIS IS A VISIT SUMMARY EXTRACTED FROM THE [employer] CHART. IT IS NOT A COPY OF THE [employer] PROGRESS NOTE. MTDD
== END ==
LOC: M PAIN 10:45
PROVIDERS: ATTEND Anesthesiology
DX: M51.16 Intervertebral disc disorders with radiculopathy, lumbar region (principal)
CPT/HCPCS: 62323; J1100; Q9967

== ENCOUNTER → 2020-03-15 | Outpatient (CLI) | payer OTHER ==
[~2020-03-15] MED LIST changes: -ISOVUE-M 300 61% 15ML VIAL As Ordered ONE; -LIDOCAINE 1% SDV 30ML VIAL As Ordered ONE; -dexameTHASONE 10MG/1ML VIAL PRES.FREE (J1100 PER 1MG) As Ordered ONE; -diazePAM 2 MG TAB As Ordered ONE
--- NOTE | 2020-03-29 03:00 | ECWPNPC ---
PATIENT NAME: ARELY DAVIS : 1965 GENDER: FEMALE VISIT DATE: 03/15/2020 DISCHARGE DATE: 03/15/20 1424 VISIT LOCKED DATE TIME: PHYSICIAN: ALMAS DAN RESOURCE: ALMAS DAN REASON FOR APPOINTMENT 1. POST LESI L5-S1 HISTORY OF PRESENT ILLNESS GENERAL: HERE FOR POST PROCEDURE FOLLOW-UP. HAD LESI L5 S1 ON 02/28/2020. REPORTING RESOLUTION OF LEFT LEG SYMPTOMS POST PROCEDURE. CONTINUES WITH SIGNIFICANT LOW BACK PAIN, ALTHOUGH SHE REPORTS INTENSITY HAS LESSENED IN THIS REGION. REVIEWED MRI OF THE LS-SPINE. DISCUSSED THERAPEUTIC LUMBAR FACET BLOCK. -. FALL RISK SCREENING: SCREENING :NO FALLS REPORTED IN THE LAST YEAR PAIN SCREENING: PATIENT HAS A COMPLAINT OF ACUTE OR CHRONIC PAIN :YES 03/15/20 INTENSITY OF PAIN (SCALE OF 1 TO 10):4 WHAT DOES YOUR PAIN FEEL LIKE:CONTINOUS, SHARP PAIN IS INCREASED BY: GETTING OUT OF BED IN AM, TURNING IN BED IN MIDDLE OF NIGHT PAIN IS DECREASED BY: NOTHING NURSING NOTE: -. PAIN CENTER INTAKE QUESTIONS: DO YOU HAVE A HISTORY OF MRSA? :NO DO YOU TAKE A BLOOD THINNERS? :NO DO YOU HAVE ANY BLEEDING DISORDERS? :NO ANY NEW NUMBNESS OR WEAKNESS IN YOUR LEGS OR ARMS? :NO ANY PACEMAKER,DEFIBRILLATOR, OR DORSAL COLUMN STIMULATOR? :NO DO YOU HAVE ANY RASHES OR OPEN SORES? :NO ARE YOU ALLERGIC TO IV DYE? :NO ARE YOU DIABETIC? :NO ANY NEW PROBLEMS WITH YOUR MEDICATIONS? :NO HAVE YOU RECEIVED A VACCINE IN THE PAST 30 DAYS? :NO DO YOU PLAN TO RECEIVE A VACCINE IN THE NEXT 21 DAYS? :NO DO YOU NEED ANY PRESCRIPTION? :NO DO YOU TAKE ANY IMMUNOSUPPRESSIVE MEDICATIONS? :NO IS THERE A CHANCE YOU COULD BE ? :NO ARE YOU BREAST FEEDING? :NO CURRENT MEDICATIONS TAKING TRIAMCINOLONE ACETONIDE 0.1 % CREAM 1 APPLICATION TO AFFECTED AREA EXTERNALLY DAILY IN AM TO AREAS ON BODY INVOLVED NEEDED TAKING HYDROCORTISONE 2.5 % CREAM 1 APPLICATION TO AFFECTED AREA RECTAL DAILY TO AREAS ON FACE WITH ITCHY RASH NEEDED TAKING TOPIRAMATE 100 MG TABLET 1 TABLET ORALLY BID TAKING CREON 53765 UNIT CAPSULE DELAYED RELEASE PARTICLES 1 CAP ORALLY THREE TIMES DAILY TAKING ALOSETRON HCL 0.5 MG TABLET 1 TABLET ORALLY TWICE A DAY TAKING LISINOPRIL 20 MG TABLET 1 TABLET ORALLY ONCE A DAY NOT-TAKING BETAMETHASONE DIPROPIONATE AUG 0.05 % GEL 1 APPLICATION TO AFFECTED AREA EXTERNALLY ONCE A DAY TO AREAS ON SCALP THAT ITCH NEEDED NOT-TAKING TRAMADOL HCL 50 MG TABLET 1 TABLET NEEDED ORALLY ONCE A DAY NOT-TAKING PREDNISONE 10 MG TABLET 1 TABLET ORALLY ONCE A DAY NOT-TAKING HYDROXYZINE HCL 25 MG TABLET 1 TABLET NEEDED ORALLY EVERY 8 HRS MEDICATION LIST REVIEWED AND RECONCILED WITH THE PATIENT PAST MEDICAL HISTORY HYPERTENSION IBS CHRONIC BACK PAIN ALLERGIC CONTACT DERNATITIS MELONOCYATIC NEVI OBESITY ALLERGIES PENICILLIN (FOR ALLERGIES USE ONLY): SOB SURGICAL HISTORY BREAST REDUCTION 04/2019 GALL BLADDER 2010 GASTRIC BYPASS 07/2013 HYSTERECTOMY 2009 BREAST LUMPECTOMY BILATERAL 2017 FAMILY HISTORY FATHER: , DIAGNOSED WITH HYPERTENSION MOTHER: ALIVE, DIABETES MATERNAL AUNT HAD PANCREATIC CANCER. DENIES ANY FAMILY HX OF MELANOMA. SOCIAL HISTORY GENERAL: TOBACCO USE ARE YOU A:NONSMOKER LATEX QUESTIONNAIRE LATEX ALLERGY : HAVE YOU EVER DEVELOPED ANY TYPE OF REACTION AFTER HANDLING LATEX PRODUCTS SUCH RUBBER GLOVES, CONDOMS, DIAPHRAGMS, BALLOONS, SOCKS, OR UNDERWEAR?NO LATEX ALLERGY : HAVE YOU EVER DEVELOPED ANY TYPE OF REACTION DURING OR AFTER DENTAL APPOINTMENT, VAGINAL/RECTAL EXAMINATION, SURGICAL PROCEDURE, OR ANY OTHER EXPOSURE?NO DATE ASKED : 02/27/2020 LATEX RISK : HAVE YOU EVER HAD ANY DIFFICULTY BREATHING OR HIVES AFTER EATING OR HANDLING ANY FRUITS, OR VEGETABLES; SUCH KIWI, BANANAS, STONE FRUITS, OR CHESTNUTSNO LATEX RISK : DO YOU HAVE A PREVIOUS PERSONAL HISTORY OF MORE THAN NINE SURGERIES, SPINA BIFIDA, OR REPEATED CATHERIZATIONS? NO LATEX RISK : ARE YOU FREQUENTLY EXPOSED TO LATEX PRODUCTS IN YOUR OCCUPATION?NO ALCOHOL SCREENING DID YOU HAVE A DRINK CONTAINING ALCOHOL IN THE PAST YEAR?NO POINTS0 INTERPRETATIONNEGATIVE RECREATIONAL DRUG USE DRUG USE?NO CAFFEINE CAFFEINE USE?NO CHRISTIANITY CHRISTIANITY CONFUCIANISM LANGUAGE LANGUAGES SPOKEN:[place] EDUCATION LEVEL OF EDUCATION:HIGH SCHOOL LEARNING BARRIERS / SPECIAL NEEDS BARRIERS TO LEARNING?NO HEARING IMPAIRED?NO VISION IMPAIRED?NO COGNITIVELY IMPAIRED?NO READINESS TO LEARN?YES LEARNING PREFERENCES?NO LEARNING CAPABILITIES PRESENT?YES EMOTIONAL BARRIERS?NO SPECIAL DEVICES?NO COMPONENT DESIGN ENGINEER NEEDED?NO DOMESTIC VIOLENCE DO YOU FEEL SAFE IN YOUR ENVIRONMENT?YES OCCUPATION: HOUSEWIFE. DIET: GASTRIC BYPASS. EXERCISE: REGULAR EXERCISE. MARITAL STATUS: . OTHERS AT HOME: LIVES WITH OTHERS. PAIN CLINIC PFS, CLERGY, PUBLIC HEALTH REFERRALS HAS THE PATIENT BEEN EDUCATED REGARDING HIS/HER PLAN OF CARE?YES HAS THE PATIENT BEEN EDUCATED REGARDING PAIN, THE RISK FOR PAIN, THE IMPORTANCE OF EFFECTIVE PAIN MANAGEMENT, AND THE PAIN ASSESSMENT PROCESS?YES ADVANCE DIRECTIVE ADVANCE DIRECTIVE DISCUSSED WITH PATIENT:YES PT. STATES SHE DOES NOT HAVE ANY ADVANCED DIRECTIVES AND SHE DECLINES INFORMATION ON HCP AT THIS TIME. HOSPITALIZATION/MAJOR DIAGNOSTIC PROCEDURE HYSTERECTOMY GASTRIC BYPASS GALL BLADDER BREAST REDUCTION REVIEW OF SYSTEMS CONSTITUTIONAL: ANY RECENT FEVER NO . CHILLS NO . WEIGHT CHANGE OF UNKNOWN REASONS NO . GASTROENTEROLOGY: NEW UNEXPLAINABLE CHANGES IN BOWEL CONTROL NO . CONSTIPATION NO . GENITOURINARY: ANY NEW CHANGE IN BLADDER CONTROL? NO . NEUROLOGY: NEW ONSET DIZZINESS OR NEUROLOGICAL CHANGES NOT MENTIONED NO . NEW NUMBNESS OR PAIN PATTERNS NOT MENTIONED AND PERTINENT TO TODAY'S VISIT NO . CARDIOLOGY: NEW CHEST PRESSURE NO . NEW CHEST PAIN NO . RESPIRATORY: UNEXPLAINABLE COUGH NO . NEW SHORTNESS OF BREATH NO . VITAL SIGNS WT 170 LBS, HT 63 IN, BMI 30.11 INDEX, BP 101/63 MM HG, HR 75 /MIN, RR 18 /MIN, TEMP 98.5 F, OXYGEN SAT % 97%, SAFE IN ENV? (Y/N) Y, NA INITIALS SC 13:19, REVIEWED BY: EM. EXAMINATION GENERAL EXAMINATION: GENERAL AWAKE,ALERT ,PLEASANT . PSYCH AFFECT NORMAL . LUNGS: LUNG CAI ARE CLEAR TO AUSCULTATION BILATERALLY. GOOD MOVEMENT OF AIR . HEART: S1, S2 IN A REGULAR RATE AND RHYTHM. NO SIGNIFICANT MURMURS, RUBS OR GALLOPS NOTED . LUMBAR: PALPATION: + FOR PAIN OVER L/S SPINE. + FOR PAIN OVER L/S PARASPINALS . DIAGNOSTIC TESTS REVIEWEDMRI L/S SPINE 07/01/2019 . ASSESSMENTS LUMBOSACRAL SPONDYLOSIS WITHOUT MYELOPATHY - M47.817 (PRIMARY) TREATMENT LUMBOSACRAL SPONDYLOSIS WITHOUT MYELOPATHY NOTES: BILATERAL L4-5, L5-S1 THERAPEUTIC LUMBAR FACET BLOCK W IV SEDATION. OTHERS NOTES: FACET JOINT INJECTION MATERIAL WAS PRINTED. PROCEDURE CODES FA211 ESTABILISHED PATIENT [facility] CHARGE DISPOSITION & COMMUNICATION FOLLOW UP IV SEDATION APT W DR Fisher (REASON: BILATERAL L4-5, L5-S1 THERAPEUTIC LUMBAR FACET BLOCK) ELECTRONICALLY SIGNED BY FRAN COLE ON 03/28/2020 AT 10:12 AM EDT DISCLAIMER : THIS IS A VISIT SUMMARY EXTRACTED FROM THE [employer] CHART. IT IS NOT A COPY OF THE [employer] PROGRESS NOTE. TIMMY
== END ==
LOC: M PAIN 13:30
PROVIDERS: ATTEND Nurse Practitioner Family
DX: M47.817 Spondylosis without myelopathy or radiculopathy, lumbosacral region (principal)

== ENCOUNTER → 2020-04-20 | Outpatient (POV) | payer OTHER ==
[~2020-04-20] MED LIST changes: +CITRTAB18 PO; +MULT1TAB50 PO; +OXYC1TAB23 PO; +PERCOCET PO; +RIZA10TA58 PO; +TRAM50TA2 PO; +ZYRTTAB8 PO
== END ==
LOC: M PAIN 10:15
PROVIDERS: ATTEND Anesthesiology
DX: M47.816 Spondylosis without myelopathy or radiculopathy, lumbar region (principal)

== ENCOUNTER → 2020-04-24 | Outpatient (POV) | payer OTHER ==
[~2020-04-24] MED LIST changes: +BUPIVACAINE HCL 0.25% 30ML VIAL As Ordered ONE; +BUPIVACAINE HCL 0.25% 30ML VIAL ONE; +ISOVUE-M 300 61% 15ML VIAL As Ordered ONE; +ISOVUE-M 300 61% 15ML VIAL ONE; +LIDOCAINE 1% SDV 30ML VIAL As Ordered ONE; +LIDOCAINE 1% SDV 30ML VIAL ONE; +MIDAZOLAM INJ 2MG/2ML VIAL (J2250 PER 1MG) As Ordered ONE; +MIDAZOLAM INJ 2MG/2ML VIAL (J2250 PER 1MG) ONE; +TRIAMCINOLONE ACETONIDE SUSP 40 MG/ML VIAL (J3301) As Ordered ONE; +TRIAMCINOLONE ACETONIDE SUSP 40 MG/ML VIAL (J3301) ONE; +fentaNYL 100 MCG/2 ML INJECTION (J3010) As Ordered ONE; +fentaNYL 100 MCG/2 ML INJECTION (J3010) ONE
--- NOTE | 2020-06-08 12:50 | REP ---
C-ARM VIEWS LOWER LUMBAR SPINE: HISTORY: Pain. FINDINGS: 2 C-arm views lower lumbar spine performed during bilateral facet infection by Dr. Ramírez. [place] are seen along the lower lumbar facet joints bilaterally and a small amount of contrast is injected. 29 seconds of fluoroscopy time utilized. MTDD
== END ==
LOC: M PAIN 09:00
PROVIDERS: ATTEND Anesthesiology
DX: M47.816 Spondylosis without myelopathy or radiculopathy, lumbar region (principal); M47.817 Spondylosis without myelopathy or radiculopathy, lumbosacral region

== ENCOUNTER → 2020-05-08 | Outpatient (CLI) | payer OTHER ==
[~2020-05-08] MED LIST changes: -BUPIVACAINE HCL 0.25% 30ML VIAL As Ordered ONE; -BUPIVACAINE HCL 0.25% 30ML VIAL ONE; -CITRTAB18 PO; -ISOVUE-M 300 61% 15ML VIAL As Ordered ONE; -ISOVUE-M 300 61% 15ML VIAL ONE; -LIDOCAINE 1% SDV 30ML VIAL As Ordered ONE; -LIDOCAINE 1% SDV 30ML VIAL ONE; -MIDAZOLAM INJ 2MG/2ML VIAL (J2250 PER 1MG) As Ordered ONE; -MIDAZOLAM INJ 2MG/2ML VIAL (J2250 PER 1MG) ONE; -MULT1TAB50 PO; -OXYC1TAB23 PO; -PERCOCET PO; -RIZA10TA58 PO; -TRAM50TA2 PO; -TRIAMCINOLONE ACETONIDE SUSP 40 MG/ML VIAL (J3301) As Ordered ONE; -TRIAMCINOLONE ACETONIDE SUSP 40 MG/ML VIAL (J3301) ONE; -ZYRTTAB8 PO; -fentaNYL 100 MCG/2 ML INJECTION (J3010) As Ordered ONE; -fentaNYL 100 MCG/2 ML INJECTION (J3010) ONE
== END ==
LOC: M PAIN 13:20
PROVIDERS: ATTEND Nurse Practitioner Family
DX: M47.816 Spondylosis without myelopathy or radiculopathy, lumbar region (principal)

== ENCOUNTER 2020-06-12 07:15 | Day surgery (SDC) | payer OTHER ==
[2020-06-12] VITALS (7 sets, daily range): BP systolic 92–118; BP diastolic 56–79
[~2020-06-12] VITALS: Ht 160 cm; Wt 73.8 kg
[~2020-06-12 07:15] MED LIST changes: +CITRTAB18 PO; +CLINDAMYCIN 600 MG in IV 1 EA IV ONE; +HEPARIN SOD (PORCINE) 5000UNITS/ML 1ML VIAL/SYRINGE SQ ONE; +LR 1,000 ML IV ONE; +MULT1TAB50 PO
[2020-06-12] MEDS ORDERED: RIZA10TA58 PO (08:06)
[2020-06-12] MEDS ORDERED: ONDANSETRON 4MG/2ML VIAL As Ordered ONE ×2 (08:56→13:48)
[2020-06-12] MEDS ORDERED: fentaNYL 250 MCG/5 ML INJECTION (J3010) As Ordered ONE (08:56)
[2020-06-12] MEDS ORDERED: LIDOCAINE 2% 100MG/5ML SDV (FOR ANES.) As Ordered ONE (08:56)
[2020-06-12] MEDS ORDERED: LIDOCAINE 2% INJ 100 MG/5 ML SYRINGE As Ordered ONE (08:56)
[2020-06-12] MEDS ORDERED: ROCURONIUM BROMIDE 50 MG/5 ML VIAL As Ordered ONE ×2 (08:56→11:28)
[2020-06-12] MEDS ORDERED: propofoL 200 MG/20 ML VIAL As Ordered ONE (08:56)
[2020-06-12] MEDS ORDERED: SCOPOLAMINE 1MG TRANSDERMAL PATCH As Ordered ONE (08:57)
[2020-06-12] MEDS ORDERED: MIDAZOLAM INJ 2MG/2ML VIAL (J2250 PER 1MG) As Ordered ONE (08:57)
[2020-06-12] MEDS ORDERED: SCOPOLAMINE 1MG TRANSDERMAL PATCH TOP ONE (09:15)
[2020-06-12] MEDS ORDERED: BUPIVACAINE LIPOSOME/PF 1.3% 20ML VIAL (13.3MG/ML)(EXPAREL)(C9290 PER1MG) As Ordered ONE (10:19)
[2020-06-12] MEDS ORDERED: BACITRACIN PWD 50,000 UNITS VIAL As Ordered ONE (10:19)
[2020-06-12] MEDS ORDERED: ePHEDrine SULFATE 25 MG/5 ML(5MG/ML) SYRINGE As Ordered ONE (10:52)
[2020-06-12] MEDS ORDERED: METOCLOPRAMIDE INJ 10MG/2ML VIAL (J2765 PER 1) As Ordered ONE (11:01)
[2020-06-12] MEDS ORDERED: ACETAMINOPHEN 1000MG 100ML IV BTL (OFIRMEV) (J0131 PER 10MG) As Ordered ONE (11:22)
[2020-06-12] MEDS ORDERED: SUGAMMADEX SODIUM 500 MG/5 ML VIAL (BRIDION) As Ordered ONE (11:22)
[2020-06-12] MEDS ORDERED: HYDROmorphone HCL 2 MG/ML 1ML VIAL (J1170) As Ordered ONE (11:22)
--- NOTE | 2020-06-12 13:44 | POST-OPPD ---
Postoperative Procedure Note Date Of Procedure: Jun 12, 2020 PREOPERATIVE DIAGNOSIS: Panniculitis POSTOPERATIVE DIAGNOSIS: same FINDINGS: rectus muscle diathesis, panniculitis PROCEDURE: Extended panniculectomy with rectus muscle plication. SURGEON: Dr Vogel ANESTHESIA: General SPECIMENS: Pannus 1896 gm ESTIMATED BLOOD LOSS: 100 cc REPLACED: none DRAINS: 10 mm JPx2 COMPLICATIONS: none POSTOPERATIVE CONDITION: stable SUNNI VOGEL DO Jun 12, 2020 13:44
[2020-06-12] MEDS ORDERED: ONDANSETRON 4MG/2ML VIAL IV PRN ×2 (13:45→14:00)
[2020-06-12] MEDS ORDERED: MORPHINE 4 MG/ML 1ML VIAL/SYRINGE (J2270) IV PRN (13:45)
[2020-06-12] MEDS ORDERED: LR 1,000 ML IV SCH (14:00)
[2020-06-12] MEDS ORDERED: METOCLOPRAMIDE INJ 10MG/2ML VIAL (J2765 PER 1) IV PRN (14:00)
[2020-06-12] MEDS ORDERED: fentaNYL 100 MCG/2 ML INJECTION (J3010) IV PRN (14:00)
[2020-06-12] MEDS ORDERED: MEPERIDINE INJ 25 MG/ML VIAL (J2175) IV PRN (14:00)
[2020-06-12] MEDS ORDERED: oxyCODONE 5MG TAB PO PRN (14:00)
[2020-06-12] MEDS: CETIRIZINE (ZyrTEC) 10 MG TAB PO SCH (15:46)
[2020-06-12] MEDS: LR 1,000 ML IV SCH ×2 (15:47→23:05)
[2020-06-12] MEDS: CLINDAMYCIN 600 MG in IV 1 EA IV SCH ×2 (17:18→23:05)
[2020-06-13 02:00] VITALS: BP 110/70
[2020-06-13] MEDS: CLINDAMYCIN 600 MG in IV 1 EA IV SCH ×4 (04:47→22:33)
[2020-06-13] MEDS: ACETAMINOPHEN TAB 650MG DOSE (2X325MG) PO PRN ×2 (04:47→21:05)
[2020-06-13 06:00] VITALS: BP 110/71
[2020-06-13] MEDS ORDERED: MORPHINE 2 MG/ML 1ML VIAL (J2270) IV PRN (09:00)
[2020-06-13] MEDS: CETIRIZINE (ZyrTEC) 10 MG TAB PO SCH (09:00)
--- NOTE | 2020-06-13 10:53 | IPNPDOC ---
Subjective General Date Seen: Jun 13, 2020 Subject Chief Complaint/History The patient is a 55-year-old female admitted with a reason for visit of Panniculitis, Seperation Of Muscle. Patient s/p extended panniculectomy with rectus muscle plication POD 1. Patient still having discomfort. Using IV meds for pain. Tolerating diet. Voided. Current Medications Current Medications Current Medications Medications (Trade) Dose Ordered Sig/Stalin Route PRN Reason Start Time Stop Time Status Last Admin Dose Admin Acetaminophen (Tylenol Tab) 650 mg Q6H PRN PO MILD PAIN (PS 1-4) 06/12/20 13:45 06/13/20 04:47 Cetirizine HCl (ZyrTEC) 10 mg DAILY PO 06/12/20 09:00 06/13/20 09:00 Clindamycin Phosphate 600 mg/ IV Miscellaneous Supplies 50 ml @ 100 mls/hr Q6H IV 06/12/20 17:00 06/13/20 04:47 Fentanyl Citrate (Sublimaze) 25 mcg Q5MP PRN IV PAIN LEVEL 5-10 06/12/20 14:00 06/13/20 08:58 DC 06/12/20 14:29 Lactated Ringer's 1,000 ml @ 75 mls/hr [id number] IV 06/12/20 13:45 06/13/20 08:52 DC 06/12/20 23:05 Lactated Ringer's 1,000 ml @ 100 mls/hr Q10H IV 06/12/20 14:00 06/12/20 15:00 DC Meperidine HCl (Demerol) 12.5 mg Q5MP PRN IV SHIVERING 06/12/20 14:00 06/12/20 15:00 DC Metoclopramide HCl (REGLAN INJection) 10 mg Q6HP PRN IV NAUSEA OR VOMITING 06/12/20 14:00 06/12/20 14:29 DC 06/12/20 14:28 Morphine Sulfate (Morphine Sulfate Inj) 2 mg Q4H PRN IV MODERATE PAIN (PS 5-7) 06/13/20 09:00 Morphine Sulfate (Morphine Sulfate Inj) 4 mg Q4HP PRN IV SEVERE PAIN (PS 8-10) 06/12/20 13:45 06/13/20 08:52 DC 06/12/20 18:11 Ondansetron HCl (ZOFRAN INJection) 4 mg Q4H PRN IV NAUSEA OR VOMITING 06/12/20 13:45 Ondansetron HCl (ZOFRAN INJection) 4 mg Q4HP PRN IV NAUSEA OR VOMITING 06/12/20 14:00 06/12/20 15:00 DC Oxycodone HCl (Roxicodone, Oxyir) 5 mg ASDIRECTED PRN PO PAIN LEVEL 1-4 06/12/20 14:00 06/12/20 15:00 DC Allergies Coded Allergies: Penicillins (Verified Allergy, Severe, RASH, SOB, 06/12/20) Objective Physical Examination Examination GENERAL APPEARANCE:Patient seen, laying in bed, awake, alert, and oriented. Comfortable, in no acute distress. SKIN: Warm and moist. HEENT: Normocephalic, atraumatic. [place] palpebral conjunctiva, anicteric sclerae. Lips and mucosa appear moist. NECK: Supple, no thyromegaly. No obvious jugular venous distention. LUNGS: Clear to auscultation bilaterally. No wheezing appreciated. HEART: No chest wall abnormalities. Regular rate and rhythm with no murmurs appreciated. ABDOMEN: Abdomen is soft, non-tender, non-distended. Incision intact. Umbilicus viable. DION drains with serosanguinous drainage. 40R 40 L cc/24hr each drain. EXTREMITIES: No edema identified. No calf tenderness. Vital Signs Vital Signs Date Time Temp Pulse Resp B/P (MAP) Pulse Ox O2 Delivery O2 Flow Rate FiO2 06/13/20 06:00 98.5 68 18 110/71 (84) 98 Room Air 06/12/20 13:55 2 I&Os I&O- Last 24 Hours up to 6 AM 06/13/20 06:00 Intake Total 1840 ml Output Total 1215 ml Balance 625 ml Impression S/p Extended panniculectomy. Continue with pain management. D/c IVF D/c antibiotics after 24 hrs Diet Incentive spirometery. Change pain meds: decrease Morphine dose, Percocet. Will continue with observation. Ambulate. Plan / VTE VTE Prophylaxis Ordered?: Yes SUNNI VOGEL DO Jun 13, 2020 10:53
[2020-06-13] MEDS: PERCOCET 5MG/325MG TAB PO PRN ×2 (11:18→18:10)
[2020-06-13 14:00] VITALS: BP 131/76
[2020-06-13] MEDS: CREON-24 CAPSULE PO SCH (18:10)
[2020-06-13] MEDS: DOCUSATE SODIUM 100 MG CAP PO SCH (20:00)
[2020-06-13] MEDS: FERROUS SULFATE 325MG TAB PO SCH (20:00)
[2020-06-13 22:00] VITALS: BP 125/82
[2020-06-14] MEDS: PERCOCET 5MG/325MG TAB PO PRN ×2 (05:32→11:29)
[2020-06-14] MEDS: CLINDAMYCIN 600 MG in IV 1 EA IV SCH ×2 (05:32→11:00)
[2020-06-14 06:00] VITALS: BP 110/69
[2020-06-14] MEDS: CREON-24 CAPSULE PO SCH ×2 (08:39→13:08)
[2020-06-14] MEDS: CETIRIZINE (ZyrTEC) 10 MG TAB PO SCH (08:39)
[2020-06-14] MEDS: DOCUSATE SODIUM 100 MG CAP PO SCH (08:39)
[2020-06-14] MEDS: FERROUS SULFATE 325MG TAB PO SCH (08:39)
[2020-06-14] MEDS ORDERED: TOPIRAMATE (TopAMAX) 25 MG TAB PO SCH (09:00)
--- NOTE | 2020-06-14 10:31 | IPNPDOC ---
Subjective General Date Seen: Jun 14, 2020 Subject Chief Complaint/History The patient is a 55-year-old female admitted with a reason for visit of Panniculitis, Seperation Of Muscle. Patient s/p extended panniculectomy with rectus muscle plication POD 2. Doing well. Pain improved. Ambulating. Tolerating diet. Current Medications Current Medications Current Medications Medications (Trade) Dose Ordered Sig/Stalin Route PRN Reason Start Time Stop Time Status Last Admin Dose Admin Acetaminophen (Tylenol Tab) 650 mg Q6H PRN PO MILD PAIN (PS 1-4) 06/12/20 13:45 06/13/20 21:05 Cetirizine HCl (ZyrTEC) 10 mg DAILY PO 06/12/20 09:00 06/14/20 08:39 Clindamycin Phosphate 600 mg/ IV Miscellaneous Supplies 50 ml @ 100 mls/hr Q6H IV 06/12/20 17:00 06/14/20 05:32 Docusate Sodium (Colace) 100 mg TID PO 06/13/20 21:00 06/14/20 08:39 Fentanyl Citrate (Sublimaze) 25 mcg Q5MP PRN IV PAIN LEVEL 5-10 06/12/20 14:00 06/13/20 08:58 DC 06/12/20 14:29 Ferrous Sulfate (Ferrous Sulfate) 325 mg BID PO 06/13/20 21:00 06/14/20 08:39 Lactated Ringer's 1,000 ml @ 75 mls/hr [id number] IV 06/12/20 13:45 06/13/20 08:52 DC 06/12/20 23:05 Lactated Ringer's 1,000 ml @ 100 mls/hr Q10H IV 06/12/20 14:00 06/12/20 15:00 DC Meperidine HCl (Demerol) 12.5 mg Q5MP PRN IV SHIVERING 06/12/20 14:00 06/12/20 15:00 DC Metoclopramide HCl (REGLAN INJection) 10 mg Q6HP PRN IV NAUSEA OR VOMITING 06/12/20 14:00 06/12/20 14:29 DC 06/12/20 14:28 Morphine Sulfate (Morphine Sulfate Inj) 2 mg Q4H PRN IV MODERATE PAIN (PS 5-7) 06/13/20 09:00 06/13/20 21:05 Morphine Sulfate (Morphine Sulfate Inj) 4 mg Q4HP PRN IV SEVERE PAIN (PS 8-10) 06/12/20 13:45 06/13/20 08:52 DC 06/12/20 18:11 Ondansetron HCl (ZOFRAN INJection) 4 mg Q4H PRN IV NAUSEA OR VOMITING 06/12/20 13:45 06/13/20 20:00 Ondansetron HCl (ZOFRAN INJection) 4 mg Q4HP PRN IV NAUSEA OR VOMITING 06/12/20 14:00 06/12/20 15:00 DC Oxycodone HCl (Roxicodone, Oxyir) 5 mg ASDIRECTED PRN PO PAIN LEVEL 1-4 06/12/20 14:00 06/12/20 15:00 DC Oxycodone/ Acetaminophen (Percocet 5mg/ 325mg Tablet) 2 tab Q6HP PRN PO SEVERE PAIN (PS 8-10) 06/13/20 11:00 06/14/20 05:32 Pancrelipase (Creon-24) 1 ea WM PO 06/13/20 18:00 06/14/20 08:39 Topiramate (TopAMAX) 50 mg DAILY PO 06/14/20 09:00 06/14/20 08:39 Allergies Coded Allergies: Penicillins (Verified Allergy, Severe, RASH, SOB, 06/12/20) Objective Physical Examination Examination GENERAL APPEARANCE:Patient seen, laying in bed, awake, alert, and oriented. Comfortable, in no acute distress. SKIN: Warm and moist. HEENT: Normocephalic, atraumatic. [place] palpebral conjunctiva, anicteric sclerae. Lips and mucosa appear moist. NECK: Supple, no thyromegaly. No obvious jugular venous distention. LUNGS: Clear to auscultation bilaterally. No wheezing appreciated. HEART: No chest wall abnormalities. Regular rate and rhythm with no murmurs appreciated. ABDOMEN: Abdomen is soft, non-tender, non-distended. Incision intact. Umbilicus viable. DION drains with serosanguinous drainage. 30/40 cc/24hr each drain. EXTREMITIES: No edema identified. No calf tenderness. Vital Signs Vital Signs Date Time Temp Pulse Resp B/P (MAP) Pulse Ox O2 Delivery O2 Flow Rate FiO2 06/14/20 06:02 16 06/14/20 06:00 99.1 65 110/69 (83) 99 Room Air 06/12/20 13:55 2 I&Os I&O- Last 24 Hours up to 6 AM 06/14/20 05:59 Intake Total 835 ml Output Total 1000 ml Balance -165 ml Impression S/p extended panniculectomy POD 2. Doing well Stable for discharge. Percocet and Tylenol for pain management at home Ambulate Incentive spirometer Monitor drains. F/up plastic surgery office. Plan / VTE VTE Prophylaxis Ordered?: Yes SUNNI VOGEL DO Jun 14, 2020 10:31
[2020-06-14] MEDS ORDERED: ZYRTTAB8 PO (10:38)
[2020-06-14] MEDS ORDERED: PERCOCET PO (10:38)
[2020-06-14 14:00] VITALS: BP 102/58
[2020-06-18] MEDS ORDERED: OXYC1TAB23 PO (12:01)
--- NOTE | 2020-06-20 09:02 | RO ---
DATE OF OPERATION: 06/12/2020 PREOPERATIVE DIAGNOSIS: Panniculitis. POSTOPERATIVE DIAGNOSIS: Panniculitis. PROCEDURE: Extended panniculectomy with rectus muscle plication. ATTENDING SURGEON: Dr. Annabelle Knutson. ANESTHESIA: General. SPECIMEN: Ana Laura, 1898 grams. BLOOD LOSS: 100 mL. REPLACEMENT: None. DRAINS: 10-mm Ulises-Tejada drains x2. DESCRIPTION OF PROCEDURE: This is a 55-year-old female, status post gastric bypass with extensive weight loss. The patient has diastasis recti as well as significant pannus. She is scheduled for panniculectomy with possible rectus muscle plication. Risks, benefits, and alternatives were discussed with the patient in detail and she is ready to proceed. She was marked in the upright position in the holding area and then she was brought into the operating room, placed in supine position, and preoperative antibiotics were given. Sequentials were placed on her lower calves. General anesthesia was induced. Soto catheter was introduced in the bladder without any difficulties. The patient was prepped and draped in the usual sterile fashion. We outlined our lower incision at 7 cm from the labial crease. The incision was carried out using #10-blade and sharp dissection was done until the rectus fascia was identified using electrocautery and peak cautery. We continued our dissection until the umbilicus was encountered. Then, the rhomboid incision was made around the umbilicus stump. Dissection continued until the xiphoid process superiorly and the costal margins laterally. Hemostasis was obtained using electrocautery. We examined the rectus muscles and significant diastasis was observed, so, four finger breadths plication was done using 0-Vicryl and a running #1 PDS suture. The patient was placed in the flexed position. The excess tissue was measured and resected and sent to pathology, a total of 1896 grams. Then, the flap was then closed with interrupted 0-Vicryl suture and 3-0 Monocryl suture as well as a running V-Loc suture, and 3-0 Monocryl. New opening for the umbilicus stump was created. Using electrocautery, the umbilicus was brought into view and sutured in place with 3-0 Monocryl suture, 4-0 Monocryl, and a 5-0 plain gut suture. Two 10-mm Ulises-Tejada drains were left in place through the lateral portion of the horizontal incision. Prineo dressing, bulky dressing, Xeroform to the umbilicus, and an abdominal binder was placed. The patient was extubated in the operating room without any difficulty, transferred to the recovery room in stable condition. TIMMY
[2020-07-16] MEDS ORDERED: TRAM50TA2 PO (15:06)
[2020-07-17] MEDS ORDERED: OXYC1TAB23 PO (17:29)
== END 2020-06-14 15:50 | disposition home or self-care (01) ==
LOC: M SDC 07:15 → M MS5PR 15:20 → M SDC 06-14 15:50
PROVIDERS: ATTEND Plastic Surgery Surgery of the Hand
DX: M79.3 Panniculitis, unspecified (principal); Z98.84 Bariatric surgery status; D64.9 Anemia, unspecified; I10 Essential (primary) hypertension; G43.909 Migraine, unspecified, not intractable, without status migrainosus; K21.9 Gastro-esophageal reflux disease without esophagitis; K58.8 Other irritable bowel syndrome; Z79.899 Other long term (current) drug therapy
CPT/HCPCS: 15830; 15847; 88304; 96374; 96375; 96376; C9290; J0131; J1170; J1644; J2250; J2270; J2405; J2765; J3010

== ENCOUNTER → 2020-08-08 | Outpatient (CLI) | payer OTHER ==
[~2020-08-08] MED LIST changes: -CLINDAMYCIN 600 MG in IV 1 EA IV ONE; -HEPARIN SOD (PORCINE) 5000UNITS/ML 1ML VIAL/SYRINGE SQ ONE; -LR 1,000 ML IV ONE; +OXYC1TAB23 PO; +PERCOCET PO; +RIZA10TA58 PO; +TRAM50TA2 PO; +ZYRTTAB8 PO
--- NOTE | 2020-08-14 15:08 | ECWPNPC ---
PATIENT NAME: ARELY DAVIS : 1965 GENDER: FEMALE VISIT DATE: 08/08/2020 DISCHARGE DATE: 08/08/20 1039 VISIT LOCKED DATE TIME: PHYSICIAN: ALMAS DAN RESOURCE: ALMAS DAN REASON FOR APPOINTMENT 1. LOW BACK PAIN HISTORY OF PRESENT ILLNESS GENERAL: HERE FOR FOLLOW-UP OF CHRONIC LOW BACK PAIN. CONTINUES TO DO WELL SINCE HAVING LUMBAR THERAPEUTIC FACET BLOCKS SEVERAL MONTHS AGO. RATING PAIN LEVEL A 0/10 VAS. REPORTS THAT SHE EXERCISES ON THE TREADMILL EVERY DAY AND HAS BEEN FOR THE PAST FEW YEARS. -. FALL RISK SCREENING: SCREENING :NO FALLS REPORTED IN THE LAST YEAR PAIN SCREENING: PATIENT HAS A COMPLAINT OF ACUTE OR CHRONIC PAIN :YES INTENSITY OF PAIN (SCALE OF 1 TO 10):0 NURSING NOTE: -. PAIN CENTER INTAKE QUESTIONS: DO YOU HAVE A HISTORY OF MRSA? :NO DO YOU TAKE A BLOOD THINNERS? :NO DO YOU HAVE ANY BLEEDING DISORDERS? :NO ANY NEW NUMBNESS OR WEAKNESS IN YOUR LEGS OR ARMS? :NO ANY PACEMAKER,DEFIBRILLATOR, OR DORSAL COLUMN STIMULATOR? :NO DO YOU HAVE ANY RASHES OR OPEN SORES? :NO ARE YOU ALLERGIC TO IV DYE? :NO ARE YOU DIABETIC? :NO ANY NEW PROBLEMS WITH YOUR MEDICATIONS? :NO HAVE YOU RECEIVED A VACCINE IN THE PAST 30 DAYS? :NO DO YOU PLAN TO RECEIVE A VACCINE IN THE NEXT 21 DAYS? :NO DO YOU NEED ANY PRESCRIPTION? :NO DO YOU TAKE ANY IMMUNOSUPPRESSIVE MEDICATIONS? :NO IS THERE A CHANCE YOU COULD BE ? :NO ARE YOU BREAST FEEDING? :NO CURRENT MEDICATIONS TAKING TRIAMCINOLONE ACETONIDE 0.1 % CREAM 1 APPLICATION TO AFFECTED AREA EXTERNALLY DAILY IN AM TO AREAS ON BODY INVOLVED NEEDED TAKING HYDROCORTISONE 2.5 % CREAM 1 APPLICATION TO AFFECTED AREA RECTAL DAILY TO AREAS ON FACE WITH ITCHY RASH NEEDED TAKING TOPIRAMATE 100 MG TABLET 1 TABLET ORALLY BID TAKING CREON 27710 UNIT CAPSULE DELAYED RELEASE PARTICLES 1 CAP ORALLY THREE TIMES DAILY TAKING ALOSETRON HCL 0.5 MG TABLET 1 TABLET ORALLY TWICE A DAY TAKING LISINOPRIL 20 MG TABLET 1 TABLET ORALLY ONCE A DAY NOT-TAKING BETAMETHASONE DIPROPIONATE AUG 0.05 % GEL 1 APPLICATION TO AFFECTED AREA EXTERNALLY ONCE A DAY TO AREAS ON SCALP THAT ITCH NEEDED NOT-TAKING TRAMADOL HCL 50 MG TABLET 1 TABLET NEEDED ORALLY ONCE A DAY NOT-TAKING PREDNISONE 10 MG TABLET 1 TABLET ORALLY ONCE A DAY NOT-TAKING HYDROXYZINE HCL 25 MG TABLET 1 TABLET NEEDED ORALLY EVERY 8 HRS MEDICATION LIST REVIEWED AND RECONCILED WITH THE PATIENT PAST MEDICAL HISTORY HYPERTENSION IBS CHRONIC BACK PAIN ALLERGIC CONTACT DERNATITIS MELONOCYATIC NEVI OBESITY ALLERGIES PENICILLIN (FOR ALLERGIES USE ONLY): SOB SURGICAL HISTORY BREAST REDUCTION 04/2019 GALL BLADDER 2010 GASTRIC BYPASS 07/2013 HYSTERECTOMY 2008 BREAST LUMPECTOMY BILATERAL 2017 TUMMY TUCK 05/2020 FAMILY HISTORY FATHER: , DIAGNOSED WITH HYPERTENSION MOTHER: ALIVE, DIABETES MATERNAL AUNT HAD PANCREATIC CANCER. DENIES ANY FAMILY HX OF MELANOMA. SOCIAL HISTORY GENERAL: TOBACCO USE ARE YOU A:NONSMOKER LATEX QUESTIONNAIRE LATEX ALLERGY : HAVE YOU EVER DEVELOPED ANY TYPE OF REACTION AFTER HANDLING LATEX PRODUCTS SUCH RUBBER GLOVES, CONDOMS, DIAPHRAGMS, BALLOONS, SOCKS, OR UNDERWEAR?NO LATEX ALLERGY : HAVE YOU EVER DEVELOPED ANY TYPE OF REACTION DURING OR AFTER DENTAL APPOINTMENT, VAGINAL/RECTAL EXAMINATION, SURGICAL PROCEDURE, OR ANY OTHER EXPOSURE?NO DATE ASKED : 02/27/2020 LATEX RISK : HAVE YOU EVER HAD ANY DIFFICULTY BREATHING OR HIVES AFTER EATING OR HANDLING ANY FRUITS, OR VEGETABLES; SUCH KIWI, BANANAS, STONE FRUITS, OR CHESTNUTSNO LATEX RISK : DO YOU HAVE A PREVIOUS PERSONAL HISTORY OF MORE THAN NINE SURGERIES, SPINA BIFIDA, OR REPEATED CATHERIZATIONS? NO LATEX RISK : ARE YOU FREQUENTLY EXPOSED TO LATEX PRODUCTS IN YOUR OCCUPATION?NO ALCOHOL SCREENING DID YOU HAVE A DRINK CONTAINING ALCOHOL IN THE PAST YEAR?NO POINTS0 INTERPRETATIONNEGATIVE RECREATIONAL DRUG USE DRUG USE?NO CAFFEINE CAFFEINE USE?NO HINDUISM HINDUISM CHURCH LANGUAGE LANGUAGES SPOKEN:MONGOLIAN EDUCATION LEVEL OF EDUCATION:HIGH SCHOOL LEARNING BARRIERS / SPECIAL NEEDS BARRIERS TO LEARNING?NO HEARING IMPAIRED?NO VISION IMPAIRED?NO COGNITIVELY IMPAIRED?NO READINESS TO LEARN?YES LEARNING PREFERENCES?NO LEARNING CAPABILITIES PRESENT?YES EMOTIONAL BARRIERS?NO SPECIAL DEVICES?NO MANAGER TARGET NEEDED?NO DOMESTIC VIOLENCE DO YOU FEEL SAFE IN YOUR ENVIRONMENT?YES OCCUPATION: HOUSEWIFE. DIET: GASTRIC BYPASS. EXERCISE: REGULAR EXERCISE. MARITAL STATUS: . OTHERS AT HOME: LIVES WITH OTHERS. PAIN CLINIC PFS, CLERGY, PUBLIC HEALTH REFERRALS HAS THE PATIENT BEEN EDUCATED REGARDING HIS/HER PLAN OF CARE?YES HAS THE PATIENT BEEN EDUCATED REGARDING PAIN, THE RISK FOR PAIN, THE IMPORTANCE OF EFFECTIVE PAIN MANAGEMENT, AND THE PAIN ASSESSMENT PROCESS?YES ADVANCE DIRECTIVE ADVANCE DIRECTIVE DISCUSSED WITH PATIENT:YES PT. STATES SHE DOES NOT HAVE ANY ADVANCED DIRECTIVES AND SHE DECLINES INFORMATION ON HCP AT THIS TIME. HOSPITALIZATION/MAJOR DIAGNOSTIC PROCEDURE HYSTERECTOMY GASTRIC BYPASS GALL BLADDER BREAST REDUCTION SHANTA RAMIREZ REVIEW OF SYSTEMS CONSTITUTIONAL: ANY RECENT FEVER NO . CHILLS NO . WEIGHT CHANGE OF UNKNOWN REASONS NO . GASTROENTEROLOGY: NEW UNEXPLAINABLE CHANGES IN BOWEL CONTROL NO . CONSTIPATION NO . GENITOURINARY: ANY NEW CHANGE IN BLADDER CONTROL? NO . NEUROLOGY: NEW ONSET DIZZINESS OR NEUROLOGICAL CHANGES NOT MENTIONED NO . NEW NUMBNESS OR PAIN PATTERNS NOT MENTIONED AND PERTINENT TO TODAY'S VISIT NO . CARDIOLOGY: NEW CHEST PRESSURE NO . NEW CHEST PAIN NO . RESPIRATORY: UNEXPLAINABLE COUGH NO . NEW SHORTNESS OF BREATH NO . VITAL SIGNS WT 157.0 LBS, HT 63 IN, BMI 27.81 INDEX, BP 119/73 MM HG, HR 66 /MIN, RR 18 /MIN, TEMP 97.9 F, OXYGEN SAT % 100%, SAFE IN ENV? (Y/N) Y, NA INITIALS AW 0959, REVIEWED BY: ALLY. EXAMINATION GENERAL EXAMINATION: GENERALAWAKE,ALERT ,PLEASANT . PSYCHAFFECT NORMAL . LUNGS:LUNG CAI ARE CLEAR TO AUSCULTATION BILATERALLY. GOOD MOVEMENT OF AIR . HEART:S1, S2 IN A REGULAR RATE AND RHYTHM. NO SIGNIFICANT MURMURS, RUBS OR GALLOPS NOTED . ASSESSMENTS LUMBOSACRAL SPONDYLOSIS WITHOUT MYELOPATHY - M47.817 (PRIMARY) TREATMENT LUMBOSACRAL SPONDYLOSIS WITHOUT MYELOPATHY NOTES: CONTINUE HOME EXERCISE AND STRETCHING. PATIENT WILL CALL FOR FOLLOW-UP IF HER CONDITION CHANGES IN CONSIDERATION FOR INTERVENTIONAL THERAPY. PROCEDURE CODES FA211 ESTABILISHED PATIENT [facility] CHARGE DISPOSITION & COMMUNICATION FOLLOW UP PATIENT WILL CALL FOR FOLLOW-UP IF NECESSARY (REASON: LOW BACK PAIN) ELECTRONICALLY SIGNED BY FRAN COLE ON 08/13/2020 AT 01:52 PM EST DISCLAIMER : THIS IS A VISIT SUMMARY EXTRACTED FROM THE [employer] CHART. IT IS NOT A COPY OF THE [employer] PROGRESS NOTE. TIMMY
== END ==
LOC: M PAIN 09:45
PROVIDERS: ATTEND Nurse Practitioner Family
DX: M47.817 Spondylosis without myelopathy or radiculopathy, lumbosacral region (principal); G89.29 Other chronic pain; Z98.84 Bariatric surgery status; Z88.0 Allergy status to penicillin; Z79.899 Other long term (current) drug therapy

== ENCOUNTER → 2020-11-22 | Outpatient (CLI) | payer OTHER ==
[~2020-11-22] MED LIST changes: -LISI-538 PO; +LISI10TA22 PO; -LISI10TA4 PO; +LISI20TA33 PO
== END ==
LOC: M LABSMTC 13:06
PROVIDERS: ATTEND Family Medicine
DX: Z20.822 Contact with and (suspected) exposure to COVID-19 (principal)
CPT/HCPCS: C9803; U0003

== ENCOUNTER → 2021-02-01 | Outpatient (CLI) | payer SELFPAY | LOC: M LABSMTC 09:43 | PROVIDERS: ATTEND Pediatrics | DX: Z20.822 Contact with and (suspected) exposure to COVID-19 (principal) ==

== ENCOUNTER → 2021-03-28 | Outpatient (CLI) | payer OTHER ==
[~2021-03-28] MED LIST changes: +ISOVUE-370 76% 100ML VIAL As Ordered ONE; +OMEP40CA4 PO; -OMEP40CA97 PO
--- NOTE | 2021-03-28 09:29 | REP ---
INDICATION: BARIATRIC SURGERY STATUS. COMPARISON: None TECHNIQUE: Axial contrast-enhanced images from the lung bases to the pubic symphysis using 100 cc Isovue 370 intravenous contrast material. Coronal and sagittal reformations obtained. This CT examination was performed using the following dose reduction techniques: Automated exposure control, adjustment of mA and/or kv according to the patient's size, and the use of iterative reconstruction technique. FINDINGS: Patient is status post gastric bypass surgery and the gastrojejunostomy appears intact while the excluded portion of the stomach appears appropriately collapsed. No free air or ascites. Liver, spleen, pancreas, bilateral adrenal glands and left kidney are normal. Right kidney includes 5 mm nonobstructing nephrolith. The remainder of the enteric system appears normal. Moderate fecal stasis throughout the colon should be correlated clinically. No evidence for obstruction or acute inflammatory process. Normal terminal ileum and appendix are identified in the right lower quadrant. Pelvis demonstrates normal bladder and prior hysterectomy. No ascites. No free air. No intraperitoneal or retroperitoneal adenopathy. Abdominal aorta and vasculature appear normal. Musculoskeletal structures are intact and without acute osseous abnormality. IMPRESSION: 1. Essentially normal appearance to the gastric bypass surgery. 2. Moderate fecal stasis should be correlated clinically. 3. 5 mm nonobstructing right renal calculus. <Electronically signed by Jorge Coley > 03/28/21 [id number]
== END ==
LOC: M RAD 08:43
PROVIDERS: ATTEND Internal Medicine Gastroenterology
DX: R19.7 Diarrhea, unspecified (principal); N20.0 Calculus of kidney; K59.00 Constipation, unspecified; Z98.84 Bariatric surgery status
CPT/HCPCS: 74178; Q9967

== ENCOUNTER → 2021-06-20 | Outpatient (CLI) | payer OTHER ==
[~2021-06-20] MED LIST changes: -ISOVUE-370 76% 100ML VIAL As Ordered ONE; +PROHANCE 279.3MG/ML 15ML VIAL As Ordered ONE
--- NOTE | 2021-06-20 16:20 | REP ---
INDICATION: LUMP LT BREAST. Post bilateral breast reduction 2019. Prior bilateral breast biopsy. Palpable mass in the 6-9 o'clock position of the right breast inferior and lateral quadrant with tenderness to palpation x2 months. Clear nipple discharge expressed from left nipple. COMPARISON: Comparison MRI study 29 March 2020. TECHNIQUE: Three Gayle MRI imaging was performed with a dedicated breast coil. Axial, coronal, and sagittal T1 and T2 weighted scans were obtained with and without fat saturation in the usual fashion. The study includes dynamically acquired post gadolinium-enhanced imaging with image subtraction. Maximum intensity projection and multi planar reformation imaging is included as well. This study is interpreted with the aid of Moolta, an FDA approved computer aided detection (CAD) software program, on a dedicated breast MRI workstation. The gadolinium enhancement dose is 14 mL of intravenous ProHance. FINDINGS: There is a mild amount of fibroglandular tissue bilaterally corresponding with the mammographic pattern. There is mild background parenchymal enhancement. There is no evidence of axillary lymphadenopathy or significant breast cystic change. There is however a moderately dilated duct system in the left superior breast at approximately 2:12 o'clock position. This is somewhat more prominent than it was on the MRI study from March 29, 2020. The dilated duct extends into the nipple. The content of the duct is T2 hyperintense and T1 hypointense. No intraductal lesion is visualized on MRI imaging. No intraductal or periductal suspicious contrast enhancement is seen. Postoperative changes are seen in both breasts as well post reduction. High-resolution pre and post-contrast T1 and T2 weighted scans show no suspicious morphologic abnormality in either breast. Dynamically acquired sequential postcontrast images show no suspicious area of enhancement and washout kinetics in either breast to suggest malignancy. Subtraction images show no additional abnormality. IMPRESSION: BI-RADS category 0 incomplete bilateral breast MRI findings. Moderately dilated single duct system left breast superiorly 12 o'clock position. No mass or obstructive etiology visualized with MRI scanning. Repeat mammography and focused left breast ultrasound suggested. Consultation with breast surgeon should be considered. Nipple discharge cytology could be performed. <Electronically signed by Erik Santacruz > 06/20/21 [id number]
== END ==
LOC: M RAD 13:09
PROVIDERS: ATTEND Nurse Practitioner Primary Care
DX: R92.2 Inconclusive mammogram (principal); N63.13 Unspecified lump in the right breast, lower outer quadrant
CPT/HCPCS: A9576; C8908

== ENCOUNTER → 2021-06-25 | Outpatient (CLI) | payer OTHER ==
[~2021-06-25] MED LIST changes: -PROHANCE 279.3MG/ML 15ML VIAL As Ordered ONE
--- NOTE | 2021-06-25 13:42 | REP ---
INDICATION: LEFT NIPPLE DISCHARGE,RIGHT BREAST LUMP; LEFT NIPPLE DISCHARGE, RIGHT BREAST LUMP. COMPARISON: MRI 06/20/2021, mammogram 01/30/2020 as well as other prior exams. TECHNIQUE: MLO and CC views bilateral breasts with tomosynthesis. Bilateral breast ultrasound performed. FINDINGS: The site of the palpable lump is marked at the scar site of the right breast inferiorly, status post breast reduction surgery in 2019. Mixed fat and soft tissue density at that location is stable, with scattered tiny calcifications. The findings are most consistent with fat necrosis. Scattered branching ductal density in the 12 o'clock region of the left breast is stable. No new mass or suspicious clustered microcalcifications are seen bilaterally. In the right breast at 6 o'clock at the site of the reported palpable abnormality ill-defined hypoechoic tissue is seen measuring 2.8 x 1.5 x 1.7 cm. Elastography interrogation demonstrates KP a values between 5 and 11. The left breast at 12 o'clock dilated ducts are again seen with no evidence of intraductal nodule. The Volpara volumetric breast density pattern is B. IMPRESSION: BIRADS/ACR category 2, benign. At the site of the palpable abnormality inferiorly in the right breast there are mammographic and sonographic findings consistent with fat necrosis. At 12 o'clock left breast ductal dilatation is again seen with no sonographic evidence of intraductal nodule. This patient's Tyrer-Cuzick lifetime breast cancer risk assessment score is 8.1%. This mammogram was interpreted with the aid of an FDA-approved computer-aided detection system. The patient states she had a clinical breast exam in May 2021. The patient letter being requested is M2. RECOMMENDATION: Repeat screening mammography recommended 1 year (for women over 40). Recommend clinical correlation and follow-up. <Electronically signed by Ashutosh Albert > 06/25/21 2721
== END ==
LOC: M WHC 10:13
PROVIDERS: ATTEND Nurse Practitioner Primary Care
DX: N63.10 Unspecified lump in the right breast, unspecified quadrant (principal); N64.52 Nipple discharge
CPT/HCPCS: 76642; 77066; G0279

== ENCOUNTER → 2021-10-09 | Outpatient (CLI) | payer OTHER ==
[~2021-10-09] MED LIST changes: +HYDR25OIN TOP; +TRIA1CR80 TOP
[2021-10-09 15:00] VITALS: BP 116/74
== END ==
LOC: M WHCPRO 13:09
PROVIDERS: ATTEND Surgery
DX: D24.1 Benign neoplasm of right breast (principal)

== ENCOUNTER → 2021-10-24 | Outpatient (CLI) | payer OTHER ==
[~2021-10-24] MED LIST changes: +GABA-282
== END ==
LOC: M LABSMTC 10:25
PROVIDERS: ATTEND Anesthesiology
DX: Z01.818 Encounter for other preprocedural examination (principal); Z11.52 Encounter for screening for COVID-19

== ENCOUNTER → 2021-11-21 | Outpatient (CLI) | payer OTHER ==
[~2021-11-21] MED LIST changes: +TOPI100T9 PO
== END ==
LOC: M LABSMTC 09:10
PROVIDERS: ATTEND Anesthesiology
DX: Z01.818 Encounter for other preprocedural examination (principal); Z11.52 Encounter for screening for COVID-19

== ENCOUNTER 2021-11-26 06:04 | Day surgery (SDC) | payer OTHER ==
[~2021-11-26] VITALS: Ht 160 cm; Wt 78.2 kg
[~2021-11-26 06:04] MED LIST changes: +CLINDAMYCIN 900 MG in IV 1 EA IV ONE; +HEPARIN SOD (PORCINE) 5000UNITS/ML 1ML VIAL/SYRINGE SQ ONE; +LR 1,000 ML IV ONE
[2021-11-26] MEDS ORDERED: MIDAZOLAM INJ 2MG/2ML VIAL (J2250 PER 1MG) As Ordered ONE (07:23)
[2021-11-26] MEDS ORDERED: dexameTHASONE 4 MG/ML 1ML VIAL (J1100 PER 1MG) As Ordered ONE (07:23)
[2021-11-26] MEDS ORDERED: propofoL 200 MG/20 ML VIAL As Ordered ONE (07:23)
[2021-11-26] MEDS ORDERED: LIDOCAINE 2% 100MG/5ML SDV (FOR ANES.) As Ordered ONE (07:23)
[2021-11-26] MEDS ORDERED: ONDANSETRON 4MG/2ML VIAL As Ordered ONE (07:23)
[2021-11-26] MEDS ORDERED: LIDOCAINE 1% SDV 30ML VIAL As Ordered ONE (07:24)
[2021-11-26] MEDS ORDERED: fentaNYL 100 MCG/2 ML INJECTION As Ordered ONE (07:24)
[2021-11-26] MEDS ORDERED: BUPIVACAINE HCL 0.25% 30ML VIAL As Ordered ONE (07:25)
[2021-11-26] MEDS ORDERED: SCOPOLAMINE 1MG TRANSDERMAL PATCH As Ordered ONE (07:34)
[2021-11-26] MEDS ORDERED: ROCURONIUM BROMIDE 50 MG/5 ML VIAL As Ordered ONE (07:46)
[2021-11-26] MEDS ORDERED: LACRILUBE (AKWA TEARS) OPHTH OINT 3.5 GM As Ordered ONE (07:57)
[2021-11-26] MEDS ORDERED: PHENYLephrine 500MCG 5ML (100MCG/ML) SYRINGE As Ordered ONE (08:26)
[2021-11-26] MEDS ORDERED: ePHEDrine SULFATE 25 MG/5 ML(5MG/ML) SYRINGE As Ordered ONE (08:26)
[2021-11-26] MEDS ORDERED: METOCLOPRAMIDE INJ 10MG/2ML VIAL (J2765 PER 1) As Ordered ONE (08:41)
[2021-11-26] MEDS ORDERED: SUGAMMADEX SODIUM 500 MG/5 ML VIAL (BRIDION) As Ordered ONE (08:43)
[2021-11-26] MEDS ORDERED: ACETAMINOPHEN 1000MG 100ML IV BTL (OFIRMEV) (J0131 PER 10MG) As Ordered ONE (08:43)
[2021-11-26] MEDS ORDERED: HYDROmorphone HCL 2MG/ML 1ML VIAL As Ordered ONE (09:21)
[2021-11-26] MEDS ORDERED: ROXI1TAB2 PO (10:21)
[2021-11-26] MEDS ORDERED: oxyCODONE 5MG TAB PO PRN (10:35)
[2021-11-26] MEDS ORDERED: LR 1,000 ML IV SCH (10:35)
[2021-11-26] MEDS ORDERED: ONDANSETRON 4MG/2ML VIAL IV PRN (10:35)
[2021-11-26] MEDS: fentaNYL 100 MCG/2 ML INJECTION IV PRN ×4 (10:50→11:05)
[2021-11-26 12:31] VITALS: BP 141/82
== END 2021-11-26 12:35 | disposition home or self-care (01) ==
LOC: M SDC 06:04
PROVIDERS: ATTEND Surgery
DX: N60.42 Mammary duct ectasia of left breast (principal); N64.1 Fat necrosis of breast; I10 Essential (primary) hypertension; Z88.0 Allergy status to penicillin; K58.8 Other irritable bowel syndrome; Z79.899 Other long term (current) drug therapy; G43.909 Migraine, unspecified, not intractable, without status migrainosus; Z86.16 Personal history of COVID-19
CPT/HCPCS: 19110; 19120; 36415; 86850; 86900; 86901; 88305; 88307; 93005; J0131; J1100; J1170; J1644; J2250; J2370; J2405; J2765; J3010

== ENCOUNTER → 2022-07-08 | Outpatient (CLI) | payer OTHER ==
[~2022-07-08] MED LIST changes: -CLINDAMYCIN 900 MG in IV 1 EA IV ONE; -HEPARIN SOD (PORCINE) 5000UNITS/ML 1ML VIAL/SYRINGE SQ ONE; -LR 1,000 ML IV ONE; +ROXI1TAB2 PO
== END ==
LOC: M SLEEP HO 13:02
PROVIDERS: ATTEND Physician Assistant
DX: R53.83 Other fatigue (principal)

== ENCOUNTER → 2022-08-12 | Outpatient (CLI) | payer OTHER | LOC: M WHC 11:04 | PROVIDERS: ATTEND Nurse Practitioner Women's Health | DX: N64.4 Mastodynia (principal); N63.25 Unspecified lump in the left breast, overlapping quadrants | CPT/HCPCS: 77066; G0279 ==

== ENCOUNTER → 2023-07-13 | Outpatient (CLI) | payer OTHER ==
[~2023-07-13] MED LIST changes: +ACETAMINOPHEN TAB 650MG DOSE (2X325MG) PO ONE; +ALBUTEROL SULFATE 2.5MG/0.5ML INH NEB SOLN INH PRN; +EPINEPHrine INJ 1 MG/ML 1ML AMP IM PRN; +FERRIC CARBOXYMALTOSE INJ 750 MG in NS 250 ML (>50kg) IV ONE; +NS 1,000 ML IV SCH; +diphenhydrAMINE 25MG CAP PO ONE; +diphenhydrAMINE 50MG/ML VIAL IV PRN; +methylPREDNISolone 125MG 2ML VIAL IV PRN
[2023-07-13 09:50] VITALS: BP 102/65; O2SAT 98
[2023-07-13 12:39] VITALS: BP 104/60; O2SAT 100
== END ==
LOC: M INFU 09:43
PROVIDERS: ATTEND Nurse Practitioner Primary Care
DX: D50.9 Iron deficiency anemia, unspecified (principal); Z88.0 Allergy status to penicillin
CPT/HCPCS: 96365; 96366; J1439

== ENCOUNTER 2023-07-20 10:07 | Outpatient (CLI) | payer OTHER ==
[~2023-07-20] VITALS: Ht 160 cm; Wt 82.5 kg
[~2023-07-20 10:07] MED LIST changes: -ACETAMINOPHEN TAB 650MG DOSE (2X325MG) PO ONE; -FERRIC CARBOXYMALTOSE INJ 750 MG in NS 250 ML (>50kg) IV ONE; -NS 1,000 ML IV SCH; -diphenhydrAMINE 25MG CAP PO ONE
[2023-07-20 10:55] VITALS: BP 110/71; O2SAT 100
[2023-07-20] MEDS ORDERED: FERRIC CARBOXYMALTOSE INJ 750 MG in NS 250 ML (>50kg) IV ONE ×3 (11:00)
[2023-07-20] MEDS ORDERED: NS 1,000 ML IV SCH (11:00)
[2023-07-20] MEDS ORDERED: diphenhydrAMINE 25MG CAP PO ONE (11:00)
[2023-07-20] MEDS ORDERED: ACETAMINOPHEN TAB 650MG DOSE (2X325MG) PO ONE (11:00)
[2023-07-20 12:35] VITALS: BP 102/69; O2SAT 100
== END 2023-07-20 12:35 ==
LOC: M INFU 10:07
PROVIDERS: ATTEND Nurse Practitioner Primary Care
DX: D50.9 Iron deficiency anemia, unspecified (principal); Z88.0 Allergy status to penicillin
CPT/HCPCS: 96365; J1439

== ENCOUNTER → 2024-01-15 | Outpatient (CLI) | payer OTHER ==
[~2024-01-15] MED LIST changes: -ALBUTEROL SULFATE 2.5MG/0.5ML INH NEB SOLN INH PRN; -EPINEPHrine INJ 1 MG/ML 1ML AMP IM PRN; -diphenhydrAMINE 50MG/ML VIAL IV PRN; -methylPREDNISolone 125MG 2ML VIAL IV PRN
== END ==
LOC: M WHC 10:11
PROVIDERS: ATTEND Family Medicine
DX: Z12.31 Encounter for screening mammogram for malignant neoplasm of breast (principal)

== ENCOUNTER → 2024-08-15 | Outpatient (CLI) | payer OTHER ==
[~2024-08-15] MED LIST changes: +GABA-1172; -GABA-282
== END ==
LOC: M PLAIMG 10:15
PROVIDERS: ATTEND Registered Nurse
DX: I11.9 Hypertensive heart disease without heart failure (principal); R06.02 Shortness of breath; I08.0 Rheumatic disorders of both mitral and aortic valves

== ENCOUNTER → 2024-09-20 | Outpatient (CLI) | payer OTHER ==
[2024-09-20 15:09] LABS: ALBUMIN 3.9 G/DL (3.2-5.2); ALKALINE PHOSPHATASE 101 U/L (35-104); ALT/SGPT 28 U/L (7.0-40); AST/SGOT 17 U/L (<34); BILIRUBIN,TOTAL 0.4 MG/DL (0.3-1.2); BLOOD UREA NITROGEN 29 MG/DL (9-23); CALCIUM LEVEL 10.2 MG/DL (8.5-10.1); CARBON DIOXIDE LEVEL 28 MMOL/L (20-31); CHLORIDE LEVEL 107 MMOL/L (98-107); CHOLESTEROL LEVEL 182 MG/DL (<200); CHOLESTEROL RISK RATIO 3.12 (<5); CREATININE FOR GFR 0.71 MG/DL (0.55-1.30); GLOMERULAR FILTRATION RATE > 60.0 (>51); GLUCOSE, FASTING 82 MG/DL (60-100); HDL CHOLESTEROL 58.3 MG/DL (>40); LDL CHOLESTEROL 102.3 MG/DL (<100); NON-HDL-C 123.7 MG/DL; POTASSIUM SERUM 4.4 MMOL/L (3.5-5.1); SODIUM LEVEL 145 MMOL/L (136-145); TOTAL PROTEIN 6.9 G/DL (5.7-8.2); TRIGLYCERIDES LEVEL 107 MG/DL (<150)
== END ==
LOC: M PLALAB 09:44
PROVIDERS: ATTEND Registered Nurse
DX: E78.2 Mixed hyperlipidemia (principal)

== ENCOUNTER → 2024-12-23 | Outpatient (CLI) | payer OTHER | LOC: M WUC 10:08 | PROVIDERS: ATTEND Nurse Practitioner Family | DX: K59.00 Constipation, unspecified (principal); R10.30 Lower abdominal pain, unspecified ==

== ENCOUNTER → 2025-06-30 | Outpatient (CLI) | payer OTHER ==
[~2025-06-30] MED LIST changes: +TOPI-257 PO; -TOPI100T9 PO; -VITA500T17 PO; +VITA500T8 PO
== END ==
LOC: M WHC 08:28
PROVIDERS: ATTEND Student in an Organized Health Care Education/Training Program
DX: Z12.31 Encounter for screening mammogram for malignant neoplasm of breast (principal); R92.313 Mammographic fatty tissue density, bilateral breasts

== ENCOUNTER → 2025-07-19 | Outpatient (CLI) | payer OTHER | LOC: M RAD 10:50 | PROVIDERS: ATTEND Student in an Organized Health Care Education/Training Program | DX: G43.909 Migraine, unspecified, not intractable, without status migrainosus (principal) ==